=== PATIENT | female | born 1995 | race Caucasian/White ===

== ENCOUNTER 2019-01-14 00:06 | Inpatient (IN) | payer MEDICAID ==
[2019-01-14] MEDS ORDERED: Sodium Chloride 0.9% 10 ML Syringe FLUSH PRN (00:19)
[2019-01-14] MEDS ORDERED: Nalbuphine 10 MG/1 ML Vial IVPUSH PRN (00:19)
[2019-01-14] MEDS ORDERED: Lidocaine 1% 50 ML MDV INJECT PRN (00:19)
[2019-01-14] MEDS ORDERED: Carboprost Tromethamine 250 MCG/1 ML Amp IM PRN (00:19)
[2019-01-14] MEDS ORDERED: Misoprostol 200 MCG Tab PO PRN (00:19)
[2019-01-14] MEDS ORDERED: Misoprostol 25 MCG (1/4 of 100 MCG) Tab VAG PRN ×2 (00:19)
[2019-01-14] MEDS ORDERED: Ondansetron 4 MG/2 ML SDV IV PRN (00:19)
[2019-01-14] MEDS ORDERED: Methylergonovine 0.2 MG/1 ML Amp IM PRN (00:19)
[2019-01-14] MEDS ORDERED: Sodium Chloride 0.9% 2.5 ML Syringe FLUSH PRN (00:19)
[2019-01-14] MEDS ORDERED: Tranexamic Acid 1,000 MG in Sodium Chloride 0.9% 100 ML IV PRN (00:19)
[2019-01-14] MEDS ORDERED: Terbutaline 1 MG/ML SDV SUBCUT PRN (00:19)
[2019-01-14] MEDS ORDERED: Water For Irrigation,Sterile 1,000 ML Container IRR PRN (00:19)
[2019-01-14] MEDS ORDERED: Sodium Chloride 0.9% 10 ML SDV IV PRN (00:19)
[2019-01-14] MEDS ORDERED: Misoprostol 25 MCG (1/4 of 100 MCG) Tab PO ONE (00:25)
[2019-01-14] MEDS ORDERED: Oxytocin/0.9 % Sodium Chloride 30 UNIT/500 ML BAG IV SCH ×2 (00:30)
--- NOTE | 2019-01-14 02:03 | PCM.PREANE ---
Preanesthetic Assessment - Anesthesia/Transfusion/Family Hx Anesthesia History: Prior Anesthesia Without Reaction - Review of Systems General: No Symptoms Pulmonary: No Symptoms Cardiovascular: No Symptoms Gastrointestinal: No Symptoms Neurological: No Symptoms Other: Reports: None - Physical Assessment NPO Status Date: 01/14/19 Height: 1.65 m Weight: 87.09 kg ASA Class: 2 Mental Status: Alert & Oriented x3 Dentition: Reports: Normal Dentition ROM/Head Extension: Full Lungs: Clear to Auscultation Cardiovascular: Regular Rate - Lab Values: Laboratory Last Values WBC 15.83 K/uL (4.0-11.0) H 01/14/19 00:38 RBC 4.46 M/uL (4.30-5.90) 01/14/19 00:38 Hgb 12.1 g/dL (12.0-16.0) 03 00:38 Hct 34.9 % (36.0-46.0) L 03 00:38 MCV 78.3 fL (80.0-98.0) L 03 00:38 MCH 27.1 pg (27.0-32.0) 03 00:38 MCHC 34.7 g/dL (31.0-37.0) 01/14/19 00:38 RDW Std Deviation 35.4 fl (28.0-62.0) 01/14/19 00:38 RDW Coeff of Dilan 13 % (11.0-15.0) 03 00:38 Plt Count 311 K/uL (150-400) 01/14/19 00:38 MPV 10.50 fL (7.40-12.00) 03 00:38 Blood Type A POSITIVE 01/14/19 00:38 Antibody Screen NEGATIVE 03 00:38 - Allergies Allergies/Adverse Reactions: Allergies Allergy/AdvReac Type Severity Reaction Status Date / Time amoxicillin Allergy Anaphylactic Verified 01/14/19 01:03 Shock Penicillins Allergy Anaphylactic Verified 01/14/19 01:02 Shock - Acknowledgements Anesthesia Type Planned: Epidural Pt an Appropriate Candidate for the Planned Anesthesia: Yes Alternatives and Risks of Anesthesia Discussed w Pt/Guardian: Yes Pt/Guardian Understands and Agrees with Anesthesia Plan: Yes PreAnesthesia Questionnaire - CURRENT (IN HOUSE) MEDS Current Meds: Current Medications Butorphanol Tartrate (Stadol) 1 mg IVPUSH Q1H PRN PRN Reason: Pain Carboprost Tromethamine (Hemabate Ds) 250 mcg IM ASDIRECTED PRN PRN Reason: Post Hemorrhage Lactated Ringer's (Ringers, Lactated) 1,000 mls @ 150 mls/hr IV ASDIRECTED CHRISTINE Oxytocin/Sodium Chloride (Oxytocin 30 Unit/500 Ml-Ns) 30 unit in 500 mls @ 999 mls/hr IV TITRATE CHRISTINE Oxytocin/Sodium Chloride (Oxytocin 30 Unit/500 Ml-Ns) 30 unit in 500 mls @ 2 mls/hr IV TITRATE CHRISTINE; Protocol Tranexamic Acid 1,000 mg/ (Sodium Chloride) 110 mls @ 660 mls/hr IV ONETIME PRN PRN Reason: Bleeding Lidocaine HCl (Xylocaine 1%) 50 ml INJECT ONETIME PRN PRN Reason: Laceration repair Methylergonovine Maleate (Methergine) 0.2 mg IM ASDIRECTED PRN PRN Reason: Post Hemorrhage Misoprostol (Cytotec) 200 mcg PO ONETIME PRN PRN Reason: Post Hemorrhage Misoprostol (Cytotec) 25 mcg VAG ONETIME PRN PRN Reason: Cervical Ripening Last Admin: 01/14/19 01:24 Dose: 25 mcg Misoprostol (Cytotec) 25 mcg VAG Q4H PRN PRN Reason: Cervical Ripening Nalbuphine HCl (Nubain) 10 mg IVPUSH Q1H PRN PRN Reason: Pain (severe 7-10) Ondansetron HCl (Zofran) 4 mg IV Q4H PRN PRN Reason: Nausea/Vomiting Sodium Chloride (Saline Flush) 10 ml FLUSH ASDIRECTED PRN PRN Reason: Keep Vein Open Sodium Chloride (Saline Flush) 2.5 ml FLUSH ASDIRECTED PRN PRN Reason: Keep Vein Open Sodium Chloride (Normal Saline) 10 ml IV ASDIRECTED PRN PRN Reason: IV Use Sterile Water (Sterile Water For Irrigation) 1,000 ml IRR ASDIRECTED PRN PRN Reason: delivery Terbutaline Sulfate (Brethine) 0.25 mg SUBCUT ASDIRECTED PRN PRN Reason: Tacysystole Discontinued Medications Misoprostol (Cytotec) 25 mcg PO ONETIME ONE Stop: 03/10/19 00:26 Last Admin: 01/14/19 01:24 Dose: 25 mcg
[2019-01-14] MEDS: Lactated Ringers 1,000 ML IV SCH ×2 (07:25→10:56)
[2019-01-14] MEDS: Butorphanol 1 MG/ML SDV IVPUSH PRN ×2 (07:27→12:20)
--- NOTE | 2019-01-14 10:40 | PCM.LDHP ---
L&D History of Present Illness - General Date of Service: 01/14/19 Admit Problem/Dx: Patient Status Order with Admit Dx/Problem 01/14/19 00:20 Patient Status [ADT] Routine Admission Diagnosis/Problem Admission Diagnosis/Problem Source of Information: Patient History Limitations: Reports: No Limitations - History of Present Illness Pain Score: 7 Improves with: Reports: None Worsens with: Reports: None Associated Symptoms: Reports: N - Related Data Allergies/Adverse Reactions: Allergies Allergy/AdvReac Type Severity Reaction Status Date / Time amoxicillin Allergy Anaphylactic Verified 01/14/19 01:03 Shock Penicillins Allergy Anaphylactic Verified 01/14/19 01:02 Shock Past Medical History HEENT History: Reports: None Cardiovascular History: Reports: None Respiratory History: Reports: None Gastrointestinal History: Reports: None [employer] History: Reports: Musculoskeletal History: Reports: None Neurological History: Reports: None Psychiatric History: Reports: None Endocrine/Metabolic History: Reports: None Hematologic History: Reports: None Immunologic History: Reports: None Oncologic (Cancer) History: Reports: None Dermatologic History: Reports: None - Infectious Disease History Infectious Disease History: Reports: Chicken Pox - Past Surgical History Head Surgeries/Procedures: Reports: None Cardiovascular Surgical History: Reports: None Female Surgical History: Reports: None Social & Family History - Family History Family Medical History: Noncontributory - Tobacco Use Smoking Status *Q: Never Smoker Second Hand Smoke Exposure: No - Caffeine Use Caffeine Use: Reports: None - Recreational Drug Use Recreational Drug Use: No H&P Review of Systems - Review of Systems: Review Of Systems: See Below General: Reports: No Symptoms HEENT: Reports: No Symptoms Pulmonary: Reports: No Symptoms Cardiovascular: Reports: No Symptoms Gastrointestinal: Reports: No Symptoms Genitourinary: Reports: No Symptoms Musculoskeletal: Reports: No Symptoms Skin: Reports: No Symptoms Psychiatric: Reports: No Symptoms Neurological: Reports: No Symptoms Hematologic/Lymphatic: Reports: No Symptoms Immunologic: Reports: No Symptoms L&D Exam - Exam Exam: See Below - Vital Signs Weight: 87.09 kg - OB Specific Fundal Height In cm: 38 Contraction Intensity: Mild to Moderate Movement: Active Heart Tones: Present Presentation: Vertex - Bradley Score Bradley Score Cervix Position: Midposition Bradley Score Consistency: Medium Bradley Score Effacement: 51-70% Bradley Score Dilation: 1-2 cm Bradley Score Infant's Station: -3 Bradley Score Total: 5 - Exam General: Alert, Oriented HEENT: PERRLA, Conjunctiva Clear, EACs Clear, EOMI, Hearing Intact, Mucosa Moist & [place], Nares Patent, Normal Nasal Septum, Posterior Pharynx Clear, TMs Clear Neck: Supple, Trachea Midline Lungs: Clear to Auscultation, Normal Respiratory Effort Cardiovascular: Regular Rate, Regular Rhythm GI/Abdominal Exam: Normal Bowel Sounds, Soft, Non-Tender, No Organomegaly, No Distention, No Abnormal Bruit, No Mass, Pelvis Stable Rectal Exam: Normal Exam, Normal Rectal Tone Genitourinary: Normal external exam, Normal bimanual exam, Normal speculum exam Back Exam: Normal Inspection, Full Range of Motion Extremities: Normal Inspection, Normal Range of Motion, Non-Tender, No Pedal Edema, Normal Capillary Refill Skin: Warm, Dry, Intact Neurological: Cranial Nerves Intact, Reflexes Equal Bilateral Psychiatric: Alert, Normal Affect, Normal Mood - Patient Data Lab Results Last 24 hrs: Laboratory Results - last 24 hr 01/14/19 01/14/19 Range/Units 00:38 00:38 WBC 15.83 H (4.0-11.0) K/uL RBC 4.46 (4.30-5.90) M/uL Hgb 12.1 (12.0-16.0) g/dL Hct 34.9 L (36.0-46.0) % MCV 78.3 L (80.0-98.0) fL MCH 27.1 (27.0-32.0) pg MCHC 34.7 (31.0-37.0) g/dL RDW Std Deviation 35.4 (28.0-62.0) fl RDW Coeff of Dilan 13 (11.0-15.0) % Plt Count 311 (150-400) K/uL MPV 10.50 (7.40-12.00) fL Blood Type A POSITIVE Antibody Screen NEGATIVE Result Diagrams: 01/14/19 00:38 Problem List Initiated/Reviewed/Updated: Yes Orders Last 24hrs: Active Orders 24 hr Category Date Time Status Patient Status [ADT] Routine ADT 01/14/19 00:20 Active Bedrest Bathroom Privileges [RC] ASDIRECTED Care 01/14/19 00:20 Active Communication Order [RC] ASDIRECTED Care 01/14/19 00:20 Active Communication Order [RC] ASDIRECTED Care 01/14/19 00:20 Active Communication Order [RC] ASDIRECTED Care 01/14/19 00:20 Active May Shower [RC] ASDIRECTED Care 01/14/19 00:20 Active Notify Provider [RC] PRN Care 01/14/19 00:20 Active Notify Provider [RC] PRN Care 01/14/19 00:20 Active Notify Provider [RC] PRN Care 01/14/19 00:20 Active Notify Provider [RC] STAT Care 01/14/19 00:20 Active Oxygen Therapy [RC] ASDIRECTED Care 01/14/19 00:20 Active Up ad Winnie [RC] ASDIRECTED Care 01/14/19 00:20 Active Vital Signs [RC] PER UNIT ROUTINE Care 01/14/19 00:20 Active Vital Signs [RC] PER UNIT ROUTINE Care 01/14/19 00:20 Active Clear Liquid Diet [DIET] Diet 01/14/19 Breakfast Active Butorphanol [Stadol] Med 01/14/19 00:19 Active 1 mg IVPUSH Q1H PRN Carboprost Tromethamine [Hemabate DS] Med 01/14/19 00:19 Active 250 mcg IM ASDIRECTED PRN Lactated Ringers [Ringers, Lactated] 1,000 ml Med 01/14/19 00:30 Active IV ASDIRECTED Lidocaine 1% [Xylocaine 1%] Med 01/14/19 00:19 Active 50 ml INJECT ONETIME PRN Methylergonovine [Methergine] Med 01/14/19 00:19 Active 0.2 mg IM ASDIRECTED PRN Nalbuphine [Nubain] Med 01/14/19 00:19 Active 10 mg IVPUSH Q1H PRN Ondansetron [Zofran] Med 01/14/19 00:19 Active 4 mg IV Q4H PRN Oxytocin/0.9 % Sodium Chloride [Oxytocin 30 Unit/500 ML Med 01/14/19 00:30 Active -NS] 30 unit in 500 ml IV TITRATE Oxytocin/0.9 % Sodium Chloride [Oxytocin 30 Unit/500 ML Med 01/14/19 00:30 Active -NS] 30 unit in 500 ml IV TITRATE Sodium Chloride 0.9% [Normal Saline] Med 01/14/19 00:19 Active 10 ml IV ASDIRECTED PRN Sodium Chloride 0.9% [Saline Flush] Med 01/14/19 00:19 Active 10 ml FLUSH ASDIRECTED PRN Sodium Chloride 0.9% [Saline Flush] Med 01/14/19 00:19 Active 2.5 ml FLUSH ASDIRECTED PRN Terbutaline [Brethine] Med 01/14/19 00:19 Active 0.25 mg SUBCUT ASDIRECTED PRN Tranexamic Acid [Cyklokapron] 1,000 mg Med 01/14/19 00:19 Active Sodium Chloride 0.9% [Normal Saline] 100 ml IV ONETIME Water For Irrigation,Sterile [Sterile Water for Med 01/14/19 00:19 Active Irrigation] 1,000 ml IRR ASDIRECTED PRN miSOPROStol [Cytotec] Med 01/14/19 00:19 Active 200 mcg PO ONETIME PRN miSOPROStol [Cytotec] Med 01/14/19 00:19 Active 25 mcg VAG ONETIME PRN miSOPROStol [Cytotec] Med 01/14/19 00:19 Active 25 mcg VAG Q4H PRN Scalp Electrode [WOMSER] Per Unit Routine Oth 01/14/19 00:20 Ordered Medication Administration Instruction [OM.PC] Q3H Oth 01/14/19 00:30 Ordered Peripheral IV Insertion Adult [OM.PC] Routine Oth 01/14/19 00:20 Ordered Resuscitation Status Routine Resus Stat 01/14/19 00:19 Ordered Medication Orders Butorphanol Tartrate (Stadol) 1 mg IVPUSH Q1H PRN PRN Reason: Pain Last Admin: 01/14/19 07:27 Dose: 1 mg Carboprost Tromethamine (Hemabate Ds) 250 mcg IM ASDIRECTED PRN PRN Reason: Post Hemorrhage Lactated Ringer's (Ringers, Lactated) 1,000 mls @ 150 mls/hr IV ASDIRECTED CHRISTINE Last Admin: 01/14/19 07:25 Dose: 150 mls/hr Oxytocin/Sodium Chloride (Oxytocin 30 Unit/500 Ml-Ns) 30 unit in 500 mls @ 999 mls/hr IV TITRATE CHRISTINE Oxytocin/Sodium Chloride (Oxytocin 30 Unit/500 Ml-Ns) 30 unit in 500 mls @ 2 mls/hr IV TITRATE CHRISTINE; Protocol Tranexamic Acid 1,000 mg/ (Sodium Chloride) 110 mls @ 660 mls/hr IV ONETIME PRN PRN Reason: Bleeding Lidocaine HCl (Xylocaine 1%) 50 ml INJECT ONETIME PRN PRN Reason: Laceration repair Methylergonovine Maleate (Methergine) 0.2 mg IM ASDIRECTED PRN PRN Reason: Post Hemorrhage Misoprostol (Cytotec) 200 mcg PO ONETIME PRN PRN Reason: Post Hemorrhage Misoprostol (Cytotec) 25 mcg VAG ONETIME PRN PRN Reason: Cervical Ripening Last Admin: 01/14/19 01:24 Dose: 25 mcg Misoprostol (Cytotec) 25 mcg VAG Q4H PRN PRN Reason: Cervical Ripening Nalbuphine HCl (Nubain) 10 mg IVPUSH Q1H PRN PRN Reason: Pain (severe 7-10) Ondansetron HCl (Zofran) 4 mg IV Q4H PRN PRN Reason: Nausea/Vomiting Sodium Chloride (Saline Flush) 10 ml FLUSH ASDIRECTED PRN PRN Reason: Keep Vein Open Sodium Chloride (Saline Flush) 2.5 ml FLUSH ASDIRECTED PRN PRN Reason: Keep Vein Open Sodium Chloride (Normal Saline) 10 ml IV ASDIRECTED PRN PRN Reason: IV Use Sterile Water (Sterile Water For Irrigation) 1,000 ml IRR ASDIRECTED PRN PRN Reason: delivery Terbutaline Sulfate (Brethine) 0.25 mg SUBCUT ASDIRECTED PRN PRN Reason: Tacysystole Assessment/Plan Comment:: Admitted for elective induction. P1001. FAR normal CX> 2/60/v/-3 AROM done by me clear fluid. She can Epidural when it is appropriate. You can start pitocin as per protocol.
[2019-01-14] MEDS ORDERED: Lidocaine HCl/EPINEPHrine 5 ML IJ ONE (15:33)
[2019-01-14] MEDS ORDERED: Bupivacaine 0.25% 10 ML SDV ONE (15:33)
[2019-01-14] MEDS ORDERED: fentaNYL 100 MCG/2 ML SDV ONE (15:33)
[2019-01-14] MEDS ORDERED: Docusate Sodium 100 MG Cap PO PRN (19:55)
[2019-01-14] MEDS ORDERED: Benzocaine/Menthol 20%-0.5% Spray 78 GM Cannister TOP PRN (19:55)
[2019-01-14] MEDS ORDERED: Ibuprofen 400 MG Tab PO PRN (19:55)
[2019-01-14] MEDS ORDERED: Lanolin 100% Cream 7 GM Tube TOP PRN (19:55)
[2019-01-14] MEDS ORDERED: Acetaminophen 500 MG Tab PO PRN (19:55)
[2019-01-14] MEDS ORDERED: Bisacodyl 10 MG Supp RECTAL PRN (19:55)
[2019-01-14] MEDS ORDERED: Witch Hazel Medicated Pads 40/Jar TOP PRN (19:55)
--- NOTE | 2019-01-14 20:27 | OR ---
SURGEON: Adonay Zamarripa MD DATE OF PROCEDURE: 01/14/2019 This patient is 23-year-old female, she is para 1-0-0-1, she is followed in our clinic primarily by our nurse resident services coordinator, Jessica Valdez. She have uncomplicated care. Her GBS status was negative. She is admitted for elective induction. She was induced mainly for social induction. She was induced with Cytotec. She required one dose of Cytotec. She progressed to 3 cm, 60% vertex. I was able to do artificial rupture of the membrane around 10:30 this morning with clear fluid. The patient is started on Pitocin. She started having regular contraction every 2 to 3 minutes, and then she had epidural anesthesia for labor analgesia. The patient progressed nicely, and she was able to accomplish normal spontaneous vaginal delivery for a male fetus, cried immediately, score reported to be 8 and 9, the weight is not available. The placenta was delivered spontaneous, complete, and intact. Estimated blood loss was 300 to 350 mL. There was no perineal, vaginal, or labial laceration. heart rate was category 1 through the entire process of labor. There was one nuchal cord noticed, reduced easily without any problem. There was no complication in this Labor and Delivery. VIVIANA / JOSE /[id number]
[2019-01-14] MEDS: Ibuprofen 800 MG Tab PO PRN (21:19)
[2019-01-14] MEDS: Acetaminophen 500 MG Tab PO PRN (21:20)
[2019-01-14] MEDS: oxyCODONE 5 MG Tab PO PRN (23:34)
[2019-01-15] MEDS: oxyCODONE 5 MG Tab PO PRN ×3 (06:55→21:33)
[2019-01-15] MEDS: Ibuprofen 800 MG Tab PO PRN ×2 (06:55→18:00)
--- NOTE | 2019-01-15 08:35 | PCM.DCSUM1 ---
Discharge Summary - Hospital Course Free Text/Narrative:: discharge home with , follow up 6 weeks for Diagnosis: Stroke: No - Discharge Data Discharge Date: 01/15/19 Discharge Disposition: Home, Self-Care 01 Condition: Good - Discharge Diagnosis/Problem(s) (1) Supervision of normal IUP (intrauterine ) in multigravida SNOMED Code(s): 368046082, [id number], 494785282 ICD Code: Z34.80 - ENCOUNTER FOR SUPRVSN OF NORMAL , UNSP TRIMESTER Status: Acute Priority: High Current Visit: Yes Qualifiers: Trimester: third trimester Qualified Code(s): Z34.83 - Encounter for supervision of other normal , third trimester (2) (normal spontaneous vaginal delivery) SNOMED Code(s): 40132709 ICD Code: O80 - ENCOUNTER FOR FULL-TERM UNCOMPLICATED DELIVERY Status: Acute Priority: High Current Visit: Yes - Patient Instructions Diet: Usual Diet as Tolerated Activity: As Tolerated, No Strenuous Activities, Rest and Relax Today Driving: May Drive Today Showering/Bathing: May Shower Notify Provider of: Fever, Increased Pain, Swelling and Redness, Nausea and/or Vomiting Other/Special Instructions: discharge home with , follow up 6 weeks for - Discharge Plan *PRESCRIPTION DRUG MONITORING PROGRAM REVIEWED*: Not Applicable *COPY OF PRESCRIPTION DRUG MONITORING REPORT IN PATIENT ILSA: Not Applicable Prescriptions/Med Rec: Ibuprofen [Motrin] 800 mg PO Q8H PRN #90 tablet PRN Reason: Pain Home Medications: Home Meds Ibuprofen [Motrin] 800 mg PO Q8H PRN #90 tablet 01/15/19 [Rx] Oxygen Therapy Mode: Room Air - Discharge Summary/Plan Comment DC Time >30 min.: Yes - General Info Date of Service: 01/15/19 Admission Dx/Problem (Free Text: Patient Status Order with Admit Dx/Problem 01/14/19 00:20 Patient Status [ADT] Routine Admission Diagnosis/Problem Admission Diagnosis/Problem - Review of Systems General: Reports: No Symptoms HEENT: Reports: No Symptoms Pulmonary: Reports: No Symptoms Cardiovascular: Reports: No Symptoms Gastrointestinal: Reports: No Symptoms Genitourinary: Reports: No Symptoms Musculoskeletal: Reports: No Symptoms Skin: Reports: No Symptoms Neurological: Reports: No Symptoms Psychiatric: Reports: No Symptoms - Patient Data Vitals - Most Recent: Last Vital Signs Temp 36.6 C 01/15/19 07:28 Pulse 98 01/15/19 07:28 Resp 16 01/15/19 07:28 BP 118/79 01/15/19 07:28 Pulse Ox 98 01/15/19 07:28 Weight - Most Recent: 87.09 kg Lab Results - Last 24 hrs: Laboratory Results - last 24 hr 01/15/19 Range/Units 05:35 Hgb 10.4 L (12.0-16.0) g/dL Hct 30.0 L (36.0-46.0) % Med Orders - Current: Current Medications Acetaminophen (Tylenol Extra Strength) 500 mg PO Q4H PRN PRN Reason: Pain Acetaminophen (Tylenol Extra Strength) 1,000 mg PO Q4H PRN PRN Reason: Pain Last Admin: 01/14/19 21:20 Dose: 1,000 mg Benzocaine/Menthol (Dermoplast Pain Relief 20%-0.5% [place]) 0 gm TOP ASDIRECTED PRN PRN Reason: Perineal Comfort Measure Bisacodyl (Dulcolax) 10 mg RECTAL ONETIME PRN PRN Reason: Constipation Butorphanol Tartrate (Stadol) 1 mg IVPUSH Q1H PRN PRN Reason: Pain Last Admin: 01/14/19 12:20 Dose: 1 mg Carboprost Tromethamine (Hemabate Ds) 250 mcg IM ASDIRECTED PRN PRN Reason: Post Hemorrhage Docusate Sodium (Colace) 100 mg PO BID PRN PRN Reason: Constipation Emollient Ointment (Lansinoh Hpa) 0 gm TOP ASDIRECTED PRN PRN Reason: Sore Nipples Lactated Ringer's (Ringers, Lactated) 1,000 mls @ 150 mls/hr IV ASDIRECTED CHRISTINE Last Admin: 01/14/19 10:56 Dose: 150 mls/hr Oxytocin/Sodium Chloride (Oxytocin 30 Unit/500 Ml-Ns) 30 unit in 500 mls @ 999 mls/hr IV TITRATE CHRISTINE Oxytocin/Sodium Chloride (Oxytocin 30 Unit/500 Ml-Ns) 30 unit in 500 mls @ 2 mls/hr IV TITRATE CHRISTINE; Protocol Last Titration: 01/15/19 02:01 Dose: Infused Tranexamic Acid 1,000 mg/ (Sodium Chloride) 110 mls @ 660 mls/hr IV ONETIME PRN PRN Reason: Bleeding Ibuprofen (Motrin) 400 mg PO Q4H PRN PRN Reason: Pain Ibuprofen (Motrin) 800 mg PO Q6H PRN PRN Reason: Pain Last Admin: 01/15/19 06:55 Dose: 800 mg Lidocaine HCl (Xylocaine 1%) 50 ml INJECT ONETIME PRN PRN Reason: Laceration repair Methylergonovine Maleate (Methergine) 0.2 mg IM ASDIRECTED PRN PRN Reason: Post Hemorrhage Misoprostol (Cytotec) 200 mcg PO ONETIME PRN PRN Reason: Post Hemorrhage Misoprostol (Cytotec) 25 mcg VAG ONETIME PRN PRN Reason: Cervical Ripening Last Admin: 01/14/19 01:24 Dose: 25 mcg Misoprostol (Cytotec) 25 mcg VAG Q4H PRN PRN Reason: Cervical Ripening Nalbuphine HCl (Nubain) 10 mg IVPUSH Q1H PRN PRN Reason: Pain (severe 7-10) Ondansetron HCl (Zofran) 4 mg IV Q4H PRN PRN Reason: Nausea/Vomiting Last Admin: 01/14/19 18:52 Dose: 4 mg Oxycodone HCl (Oxycodone) 5 mg PO Q2H PRN PRN Reason: Pain Last Admin: 01/15/19 06:55 Dose: 5 mg Sodium Chloride (Saline Flush) 10 ml FLUSH ASDIRECTED PRN PRN Reason: Keep Vein Open Sodium Chloride (Saline Flush) 2.5 ml FLUSH ASDIRECTED PRN PRN Reason: Keep Vein Open Sodium Chloride (Normal Saline) 10 ml IV ASDIRECTED PRN PRN Reason: IV Use Sterile Water (Sterile Water For Irrigation) 1,000 ml IRR ASDIRECTED PRN PRN Reason: delivery Terbutaline Sulfate (Brethine) 0.25 mg SUBCUT ASDIRECTED PRN PRN Reason: Tacysystole Witch Lily (Tucks) 1 pad TOP ASDIRECTED PRN PRN Reason: comfort care Discontinued Medications Bupivacaine HCl (Sensorcaine-Mpf 0.25%) Confirm Administered Dose 10 ml .ROUTE .STK-MED ONE Stop: 01/14/19 15:34 Last Admin: 01/15/19 07:26 Dose: Not Given Fentanyl (Sublimaze) Confirm Administered Dose 100 mcg .ROUTE .STK-MED ONE Stop: 01/14/19 15:34 Last Admin: 01/15/19 07:26 Dose: Not Given Fentanyl/Bupivacaine HCl (Qmvnsqib-[id number] 2 Mcg/Ml-0.125%) Confirm Administered Dose 100 mls @ as directed .ROUTE .STK-MED ONE Stop: 01/14/19 15:34 Last Admin: 01/15/19 07:26 Dose: Not Given Lidocaine/Epinephrine (Lidocaine 1.5%-Epi 1:200,000) Confirm Administered Dose 5 ml IJ .STK-MED ONE Stop: 01/14/19 15:34 Last Admin: 01/15/19 07:26 Dose: Not Given Misoprostol (Cytotec) 25 mcg PO ONETIME ONE Stop: 01/14/19 00:26 Last Admin: 01/14/19 01:24 Dose: 25 mcg - Exam General: Reports: Alert, Oriented, Cooperative, No Acute Distress Lungs: Reports: Clear to Auscultation, Normal Respiratory Effort Cardiovascular: Reports: Regular Rate, Regular Rhythm, No Murmurs GI/Abdominal Exam: Soft, Non-Tender (Female) Exam: Deferred Rectal (Female) Exam: Deferred Back Exam: Reports: Normal Inspection, Full Range of Motion Extremities: Normal Inspection, Normal Range of Motion Skin: Reports: Warm, Dry, Intact Neurological: Reports: No New Focal Deficit, Normal Gait, Normal Speech, Normal Tone, Strength Equal Bilateral Psy/Mental Status: Reports: Alert, Normal Affect, Normal Mood
[2019-01-15] MEDS: Acetaminophen 500 MG Tab PO PRN ×2 (13:12→20:49)
--- NOTE | 2019-01-15 13:26 | PCM48HPAN ---
Post Anesthesia Note - EVALUATION WITHIN 48HRS OF ANESTHETIC Vital Signs in Normal Range: Yes Patient Participated in Evaluation: Yes Respiratory Function Stable: Yes Airway Patent: Yes Cardiovascular Function Stable: Yes Hydration Status Stable: Yes Pain Control Satisfactory: Yes Nausea and Vomiting Control Satisfactory: Yes Mental Status Recovered: Yes Resp Rate: 16
== END 2019-01-15 22:00 | disposition home or self-care (01) | DRG 807 ==
LOC: MW.OBCHECK 00:06 → MW.OB 00:07 → MW.OBCHECK 00:45 → OBSVTOIN 19:47 → MW.OB 23:41
PROVIDERS: ADMIT Obstetrics & Gynecology; ATTEND Obstetrics & Gynecology
PROC: 3E0P7VZ Introduction of Hormone into Female Reproductive, Via Natural or Artificial Opening (ICD-10-PCS; principal; 2019-01-14)
PROC: 10E0XZZ Delivery of Products of Conception, External Approach (ICD-10-PCS; principal; 2019-01-14)
PROC: 10907ZC Drainage of Amniotic Fluid, Therapeutic from Products of Conception, Via Natural or Artificial Opening (ICD-10-PCS; principal; 2019-01-14)
PROC: 00HU33Z Insertion of Infusion Device into Spinal Canal, Percutaneous Approach (ICD-10-PCS; 2019-01-14)
PROC: 3E0R3BZ Introduction of Anesthetic Agent into Spinal Canal, Percutaneous Approach (ICD-10-PCS; 2019-01-14)
DX: O69.81X0 Labor and delivery complicated by cord around neck, without compression, not applicable or unspecified (principal); Z37.0 Single live birth; Z3A.39 39 weeks gestation of pregnancy; Z88.1 Allergy status to other antibiotic agents; Z88.0 Allergy status to penicillin
CPT/HCPCS: 36415; 51702; 59025; 59409; 85014; 85018; 85027; 86850; 86900; 86901; A9270-GY; J0595; J2405; J2590; J7120

== ENCOUNTER 2019-04-10 05:29 | Emergency (ER) | payer SELFPAY ==
[2019-04-10] MEDS ORDERED: Sodium Chloride 0.9% 2.5 ML Syringe FLUSH PRN (05:54)
[2019-04-10] MEDS ORDERED: Sodium Chloride 0.9% 1,000 ML IV ONE (05:54)
[2019-04-10] MEDS ORDERED: Sodium Chloride 0.9% 10 ML Syringe FLUSH PRN (05:54)
[2019-04-10] MEDS ORDERED: Ondansetron 4 MG/2 ML SDV IVPUSH ONE (05:54)
[2019-04-10] MEDS ORDERED: Ketorolac 30 MG/ML SDV IVPUSH ONE (05:54)
--- NOTE | 2019-04-10 06:00 | EDM.PDOC ---
ED HPI GENERAL MEDICAL PROBLEM - General Chief Complaint: Flank Pain Stated Complaint: MID BACK PAIN Time Seen by Provider: 04/10/19 05:35 - History of Present Illness INITIAL COMMENTS - FREE TEXT/NARRATIVE: HISTORY AND PHYSICAL: History of present illness: The patient is a 23-year-old female who presents with sudden onset of right flank pain radiating to the right lower abdomen that started approximately 1 hour ago. The pain is associated with nausea and vomiting but no dysuria frequency or urgency and no hematuria. The patient said she had a completely normal day yesterday and had no systemic complaints and was sleeping fine when about an hour ago she woke up feeling some discomfort which has accelerated. She 's had no vaginal bleeding and no fevers chills or upper respiratory symptoms she has no specific upper abdominal pain and no GI or gynecologic history. Patient's last sexual intercourse was 2 days ago and she has no history of ovarian cysts or gynecologic issues and her last regular period was 1 weeks ago. The patient says that she is not breast-feeding her child who is 3 months old. The patient does not take any medication for pain prior to coming here and did have an episode of vomiting at home as well as an episode of vomiting here. She has no history of food intolerance no liver or gallbladder issues or drinking history with respect to that. She admits she does not hydrate very well. Review of systems: As per history of present illness and below otherwise all systems reviewed and negative. Past medical history: As per history of present illness and as reviewed below otherwise noncontributory. Surgical history: As per history of present illness and as reviewed below otherwise noncontributory. Social history: No reported history of drug or alcohol abuse. Family history: As per history of present illness and as reviewed below otherwise noncontributory. Physical exam: General: Well-developed well-nourished female who looks uncomfortable in the room and vital signs are noted by me. HEENT: Atraumatic, normocephalic, , negative for conjunctival pallor or scleral icterus, mucous membranes moist, throat clear, neck supple, nontender, trachea midline. Lungs: Clear to auscultation, breath sounds equal bilaterally, chest nontender. Heart: S1S2, regular rate and rhythm no overt murmurs Abdomen: Soft, nondistended, there is some mild tenderness in the right upper quadrant without rebound or guarding and no right lower quadrant tenderness. Negative for masses or hepatosplenomegaly. Negative for costovertebral tenderness. When I do palpate her anterior abdomen she keeps telling me that the pain is deeper and I cannot reproduce it completely. Pelvis: Stable nontender. Genitourinary: Deferred. Rectal: Deferred. Extremities: Atraumatic, negative for cords or calf pain. Neurovascular unremarkable. Neuro: Awake, alert, oriented. Cranial nerves II through XII unremarkable. Cerebellum unremarkable. Motor and sensory unremarkable throughout. Exam nonfocal. Diagnostics: UA with culture UCG CBC CMP CT scan of the abdomen and pelvis Therapeutics: IV fluids Zofran Toradol Dilaudid Patient is still having pain so we will dose with Dilaudid. Labs have been reviewed and we are currently awaiting the CT scan results. Patient is aware of CT scan findings of several kidney stones within the kidney but no obstructive kidney stones and a renal cyst. The appendix is normal the gallbladder may have some sludge but no stones or obstruction and the pelvic organs are without abnormalities. We will give the patient pain medication and follow-up with urology as well as primary care. Patient was advised to eat a low -fat diet and she did eat posole for dinner and does eat a lot of [place] food. She is aware that there is sludge in the gallbladder but with normal LFTs normal white cell count this would be managed conservatively. I will give her Zofran and some [place] for home. Impression: Right flank pain, nephrolithiasis, rule out biliary colic Definitive disposition and diagnosis as appropriate pending reevaluation and review of above. right flank Pain Score (Numeric/FACES): 10 - Related Data Allergies Allergy/AdvReac Type Severity Reaction Status Date / Time amoxicillin Allergy Anaphylactic Verified 04/10/19 05:37 Shock Penicillins Allergy Anaphylactic Verified 04/10/19 05:37 Shock Past Medical History HEENT History: Reports: None Cardiovascular History: Reports: None Respiratory History: Reports: None Gastrointestinal History: Reports: None Genitourinary History: Reports: None [employer] History: Reports: Musculoskeletal History: Reports: None Neurological History: Reports: None Psychiatric History: Reports: None Endocrine/Metabolic History: Reports: None Hematologic History: Reports: None Immunologic History: Reports: None Oncologic (Cancer) History: Reports: None Dermatologic History: Reports: None - Infectious Disease History Infectious Disease History: Reports: None - Past Surgical History Head Surgeries/Procedures: Reports: None Cardiovascular Surgical History: Reports: None Female Surgical History: Reports: None Social & Family History - Family History Family Medical History: Noncontributory - Tobacco Use Smoking Status *Q: Never Smoker - Caffeine Use Caffeine Use: Reports: Soda - Recreational Drug Use Recreational Drug Use: No ED ROS GENERAL - Review of Systems Review Of Systems: ROS reveals no pertinent complaints other than HPI. ED EXAM, GENERAL - Physical Exam Exam: See Below (See dictation) Course - Vital Signs Last Recorded V/S: Last Vital Signs Temp 36.4 C 04/10/19 05:38 Pulse 88 04/10/19 05:38 Resp 18 04/10/19 05:38 BP 137/99 H 04/10/19 05:38 Pulse Ox 98 04/10/19 05:38 - Orders/Labs/Meds Orders: Active Orders 24 hr Category Date Time Status CULTURE URINE [RM] Stat Lab 04/10/19 05:40 Received Sodium Chloride 0.9% [Normal Saline] 1,000 ml Med 04/10/19 05:54 Active IV STAT Sodium Chloride 0.9% [Saline Flush] Med 04/10/19 05:54 Active 10 ml FLUSH ASDIRECTED PRN Sodium Chloride 0.9% [Saline Flush] Med 04/10/19 05:54 Active 2.5 ml FLUSH ASDIRECTED PRN Saline Lock Insert [OM.PC] Stat Oth 04/10/19 05:53 Ordered Medication Orders Sodium Chloride (Normal Saline) 1,000 mls @ 999 mls/hr IV STAT ONE Stop: 04/10/19 06:54 Last Admin: 04/10/19 06:09 Dose: 999 mls/hr Sodium Chloride (Saline Flush) 10 ml FLUSH ASDIRECTED PRN PRN Reason: Keep Vein Open Sodium Chloride (Saline Flush) 2.5 ml FLUSH ASDIRECTED PRN PRN Reason: Keep Vein Open Labs: Laboratory Tests 04/10/19 04/10/19 04/10/19 Range/Units 05:40 05:40 06:02 WBC 7.09 (4.0-11.0) K/uL RBC 5.11 (4.30-5.90) M/uL Hgb 13.7 (12.0-16.0) g/dL Hct 39.1 (36.0-46.0) % MCV 76.5 L (80.0-98.0) fL MCH 26.8 L (27.0-32.0) pg MCHC 35.0 (31.0-37.0) g/dL RDW Std Deviation 38.4 (28.0-62.0) fl RDW Coeff of Dilan 14 (11.0-15.0) % Plt Count 293 (150-400) K/uL MPV 10.00 (7.40-12.00) fL Neut % (Auto) 54.5 (48.0-80.0) % Lymph % (Auto) 35.1 (16.0-40.0) % [place] % (Auto) 7.9 (0.0-15.0) % Eos % (Auto) 2.4 (0.0-7.0) % Baso % (Auto) 0.1 (0.0-1.5) % Neut # (Auto) 3.9 (1.4-5.7) K/uL Lymph # (Auto) 2.5 H (0.6-2.4) K/uL [place] # (Auto) 0.6 (0.0-0.8) K/uL Eos # (Auto) 0.2 (0.0-0.7) K/uL Baso # (Auto) 0.0 (0.0-0.1) K/uL Nucleated RBC % 0.0 /100WBC Nucleated RBCs # 0 K/uL Sodium (136-145) mmol/L Potassium (3.5-5.1) mmol/L Chloride (98-107) mmol/L Carbon Dioxide (21.0-32.0) mmol/L BUN (7.0-18.0) mg/dL Creatinine (0.6-1.0) mg/dL Est Cr Clr Drug Dosing mL/min Estimated GFR (MDRD) ml/min Glucose (74-106) mg/dL Calcium (8.5-10.1) mg/dL Total Bilirubin (0.2-1.0) mg/dL AST (15-37) IU/L ALT (14-63) IU/L Alkaline Phosphatase (46-116) U/L Total Protein (6.4-8.2) g/dL Albumin (3.4-5.0) g/dL Globulin (2.6-4.0) g/dL Albumin/Globulin Ratio (0.9-1.6) Urine Color YELLOW Urine Appearance SLT CLOUDY Urine pH 7.0 (5.0-8.0) Ur Specific [place] 1.015 (1.001-1.035) Urine Protein NEGATIVE (NEGATIVE) mg/dL Urine Glucose (UA) NEGATIVE (NEGATIVE) mg/dL Urine Ketones NEGATIVE (NEGATIVE) mg/dL Urine Occult Blood LARGE H (NEGATIVE) Urine Nitrite NEGATIVE (NEGATIVE) Urine Bilirubin NEGATIVE (NEGATIVE) Urine Urobilinogen 0.2 (<2.0) EU/dL Ur Leukocyte Esterase NEGATIVE (NEGATIVE) Urine RBC 10-13 (0-2/HPF) Urine WBC 2-4 (0-5/HPF) Ur Epithelial Cells FEW (NONE-FEW) Amorphous Sediment LIGHT (NEGATIVE) Urine Bacteria FEW (NEGATIVE) Urine HCG, Qual NEGATIVE (NEGATIVE) 04/10/19 Range/Units 06:02 WBC (4.0-11.0) K/uL RBC (4.30-5.90) M/uL Hgb (12.0-16.0) g/dL Hct (36.0-46.0) % MCV (80.0-98.0) fL MCH (27.0-32.0) pg MCHC (31.0-37.0) g/dL RDW Std Deviation (28.0-62.0) fl RDW Coeff of Dilan (11.0-15.0) % Plt Count (150-400) K/uL MPV (7.40-12.00) fL Neut % (Auto) (48.0-80.0) % Lymph % (Auto) (16.0-40.0) % Atlantic % (Auto) (0.0-15.0) % Eos % (Auto) (0.0-7.0) % Baso % (Auto) (0.0-1.5) % Neut # (Auto) (1.4-5.7) K/uL Lymph # (Auto) (0.6-2.4) K/uL [place] # (Auto) (0.0-0.8) K/uL Eos # (Auto) (0.0-0.7) K/uL Baso # (Auto) (0.0-0.1) K/uL Nucleated RBC % /100WBC Nucleated RBCs # K/uL Sodium 142 (136-145) mmol/L Potassium 3.8 (3.5-5.1) mmol/L Chloride 106 (98-107) mmol/L Carbon Dioxide 25.4 (21.0-32.0) mmol/L BUN 13 (7.0-18.0) mg/dL Creatinine 0.6 (0.6-1.0) mg/dL Est Cr Clr Drug Dosing 128.98 mL/min Estimated GFR (MDRD) > 60.0 ml/min Glucose 102 (74-106) mg/dL Calcium 9.4 (8.5-10.1) mg/dL Total Bilirubin 0.3 (0.2-1.0) mg/dL AST 26 (15-37) IU/L ALT 44 (14-63) IU/L Alkaline Phosphatase 104 (46-116) U/L Total Protein 6.8 (6.4-8.2) g/dL Albumin 3.5 (3.4-5.0) g/dL Globulin 3.3 (2.6-4.0) g/dL Albumin/Globulin Ratio 1.1 (0.9-1.6) Urine Color Urine Appearance Urine pH (5.0-8.0) Ur Specific [place] (1.001-1.035) Urine Protein (NEGATIVE) mg/dL Urine Glucose (UA) (NEGATIVE) mg/dL Urine Ketones (NEGATIVE) mg/dL Urine Occult Blood (NEGATIVE) Urine Nitrite (NEGATIVE) Urine Bilirubin (NEGATIVE) Urine Urobilinogen (<2.0) EU/dL Ur Leukocyte Esterase (NEGATIVE) Urine RBC (0-2/HPF) Urine WBC (0-5/HPF) Ur Epithelial Cells (NONE-FEW) Amorphous Sediment (NEGATIVE) Urine Bacteria (NEGATIVE) Urine HCG, Qual (NEGATIVE) Meds: Medications Generic Name Dose Route Start Last Admin Trade Name Freq PRN Reason Stop Dose Admin Sodium Chloride 1,000 mls @ 999 mls/hr 04/10/19 05:54 04/10/19 06:09 Normal Saline IV 04/10/19 06:54 999 mls/hr STAT ONE Administration Sodium Chloride 10 ml 04/10/19 05:54 Saline Flush FLUSH ASDIRECTED PRN Keep Vein Open Sodium Chloride 2.5 ml 04/10/19 05:54 Saline Flush FLUSH ASDIRECTED PRN Keep Vein Open Discontinued Medications Generic Name Dose Route Start Last Admin Trade Name Leni PRN Reason Stop Dose Admin Hydromorphone HCl 1 mg 04/10/19 06:43 Dilaudid IVPUSH 04/10/19 06:44 ONETIME ONE Ketorolac Tromethamine 30 mg 04/10/19 05:54 04/10/19 06:09 Toradol IVPUSH 04/10/19 05:55 30 mg ONETIME ONE Administration Ondansetron HCl 4 mg 04/10/19 05:54 04/10/19 06:09 Zofran IVPUSH 04/10/19 05:55 4 mg ONETIME ONE Administration Departure - Departure Time of Disposition: 06:51 Disposition: Home, Self-Care 01 Condition: Good Clinical Impression: Kidney stones, Right flank pain - Discharge Information Referrals: PCP,None [Primary Care Provider] - Forms: ED Department Discharge Additional Instructions: The following information is given to patients seen in the emergency department who are being discharged to home. This information is to outline your options for follow-up care. We provide all patients seen in our emergency department with a follow-up referral. The need for follow-up, as well as the timing and circumstances, are variable depending upon the specifics of your emergency department visit. If you don't have a primary care physician on staff, we will provide you with a referral. We always advise you to contact your personal physician following an emergency department visit to inform them of the circumstance of the visit and for follow-up with them and/or the need for any referrals to a consulting specialist. The emergency department will also refer you to a specialist when appropriate. This referral assures that you have the opportunity for followup care with a specialist. All of these measure are taken in an effort to provide you with optimal care, which includes your followup. Under all circumstances we always encourage you to contact your private physician who remains a resource for coordinating your care. When calling for followup care, please make the office aware that this follow-up is from your recent emergency room visit. If for any reason you are refused follow-up, please contact the [facility] emergency department at and ask to speak to the emergency department charge nurse. [facility] Specialty Care-Urology [address] [place] [address] [facility] Primary care- Internal Medicine and Family [address] [place] [id number] Push hydration and eat a low-fat diet. Use medications as prescribed for pain management and nausea and vomiting. Please call and schedule a follow-up appointment with primary care as well as our urologist using resources given to above. Return to ER as needed and as discussed Need follow-up of the stones within your kidney with the urologist and you may need further workup of your gallbladder as we discussed and this can be performed with primary care. - My Orders Last 24 Hours: My Active Orders 04/10/19 05:40 CULTURE URINE [RM] Stat 04/10/19 05:53 Saline Lock Insert [OM.PC] Stat 04/10/19 05:54 Sodium Chloride 0.9% [Normal Saline] 1,000 ml IV STAT Sodium Chloride 0.9% [Saline Flush] 10 ml FLUSH ASDIRECTED PRN Sodium Chloride 0.9% [Saline Flush] 2.5 ml FLUSH ASDIRECTED PRN - Assessment/Plan Last 24 Hours: My Active Orders 04/10/19 05:40 CULTURE URINE [RM] Stat 04/10/19 05:53 Saline Lock Insert [OM.PC] Stat 04/10/19 05:54 Sodium Chloride 0.9% [Normal Saline] 1,000 ml IV STAT Sodium Chloride 0.9% [Saline Flush] 10 ml FLUSH ASDIRECTED PRN Sodium Chloride 0.9% [Saline Flush] 2.5 ml FLUSH ASDIRECTED PRN
[2019-04-10 06:35] LABS: CHLORIDE,CL 106 mmol/L (98-107); SODIUM,NA 142 mmol/L (136-145)
[2019-04-10] MEDS ORDERED: HYDROmorphone 1 MG/ML Syringe IVPUSH ONE (06:43)
--- NOTE | 2019-04-10 06:43 | CT ---
INDICATION: Right flank pain with hematuria. TECHNIQUE: CT abdomen and pelvis without contrast. Coronal/sagittal reconstruction images. COMPARISON: None FINDINGS: Lower chest: Unremarkable. Liver: Unremarkable. Spleen: Unremarkable. Pancreas: Unremarkable. Gallbladder and bile ducts: Radiodense material is present within the gallbladder, which may represent stones or sludge. This is seen best on image 46, series 201. No associated inflammatory changes. No common bile duct stone on CT. Kidneys: Right nephrolithiasis. The largest stone is seen in the lower pole of the right kidney, measuring 2-3 mm on image 62, series 201. There is a cyst with a probable calcification along the superior pole, right kidney, with the maximum cyst diameter at 15 mm. This may be further evaluated with ultrasound on a nonemergent basis. There is no hydronephrosis, perinephric stranding, or obstructive urolith identified. Adrenal glands: Unremarkable. GI tract: Unremarkable. Appendix is normal. Vascular structures: Unremarkable. Lymph nodes: Unremarkable. Miscellaneous: Unremarkable. No free air or significant free fluid. Pelvic Organs: Unremarkable. Bones: Small sclerotic foci within the pelvis, image 122, series 201, which are likely benign bone islands. No suspicious bone lesion is seen. IMPRESSION: 1. Right-sided nephroliths. 2. There is no obstructive urolith, hydronephrosis, or perinephric fluid collection. 3. Normal caliber appendix. 4. No abdominal/pelvic lymphadenopathy. Please note that all CT scans at this facility use dose modulation, iterative reconstruction, and/or weight-based dosing when appropriate to reduce radiation dose to as low as reasonably achievable. Dictated by Jayy Garay MD @ Apr 10 2019 6:37AM Signed by Dr. Jayy Garay @ Apr 10 2019 6:41AM
== END 2019-04-10 07:06 | disposition home or self-care (01) ==
LOC: MW.ED 05:29
DX: N20.0 Calculus of kidney (principal); Z88.1 Allergy status to other antibiotic agents; Z88.0 Allergy status to penicillin
CPT/HCPCS: 36415; 74176; 80053; 81001; 81025; 85025; 87086; 96361; 96374; 96375; 99284; J1170; J1885; J2405; J7040

== ENCOUNTER 2019-04-17 06:58 | Observation (INO) | payer MEDICAID, OTHER ==
--- NOTE | 2019-04-17 07:06 | EDM.PDOC ---
ED HPI GENERAL MEDICAL PROBLEM - General Chief Complaint: Abdominal Pain Stated Complaint: KIDNEY STONES Time Seen by Provider: 04/17/19 07:15 Source of Information: Reports: Patient History Limitations: Reports: No Limitations - History of Present Illness INITIAL COMMENTS - FREE TEXT/NARRATIVE: History of present illness: []Patient was seen on April 10 with flank and abdominal pain CT showed renal stones and gallbladder sludge with a questionable stone but no ureterolithiasis. Patient returns today with worsening nausea and pain in the upper right quadrant. She denies any fevers or chills but has severe pain. Review of systems: As per history of present illness and below otherwise all systems reviewed and negative. Past medical history: As per history of present illness and as reviewed below otherwise noncontributory. Surgical history: As per history of present illness and as reviewed below otherwise noncontributory. Social history: No reported history of drug or alcohol abuse. Family history: As per history of present illness and as reviewed below otherwise noncontributory. Physical exam: General: Well developed, well nourished in NAD HEENT: Atraumatic, normocephalic, pupils reactive, negative for conjunctival pallor or scleral icterus, mucous membranes moist, throat clear, neck supple, nontender, trachea midline. Lungs: Clear to auscultation, breath sounds equal bilaterally, chest nontender. Heart: S1S2, regular, negative for clicks, rubs, or JVD. Abdomen: NABS, Soft, nondistended, tender right upper quadrant. Negative for masses or hepatosplenomegaly. Negative for costovertebral tenderness. Pelvis: Stable nontender. Genitourinary: Deferred. Rectal: Deferred. Extremities: Atraumatic, negative for cords or calf pain. Neurovascular unremarkable. Neuro: Awake, alert, oriented. Cranial nerves II through XII unremarkable. Cerebellum unremarkable. Motor and sensory unremarkable throughout. Exam nonfocal. Skin:warm and dry Diagnostics: CBC, chemistry, lipase, hCG, UA him ultrasound gallbladder Therapeutics: Normal saline, Toradol, Dilaudid, Zofran, Cipro, Flagyl, scope patch, ED Course: Stable Impression: Acute cholecystitis Prescriptions: None Plan: Admit to observation to general surgery, Dr. Cody Definitive disposition and diagnosis as appropriate pending reevaluation and review of above. right flank Pain Score (Numeric/FACES): 10 - Related Data Allergies Allergy/AdvReac Type Severity Reaction Status Date / Time amoxicillin Allergy Anaphylactic Verified 04/17/19 07:00 Shock Penicillins Allergy Anaphylactic Verified 04/17/19 07:00 Shock Home Meds: Home Meds Hydrocodone/Acetaminophen [Hydrocodon-Acetaminophen 5-325] 1 tab PO Q6HR [History] Tamsulosin [Flomax] 1 tab PO DAILY 04/17/19 [History] Past Medical History HEENT History: Reports: None Cardiovascular History: Reports: None Respiratory History: Reports: None Gastrointestinal History: Reports: None Genitourinary History: Reports: None [employer] History: Reports: Musculoskeletal History: Reports: None Neurological History: Reports: None Psychiatric History: Reports: None Endocrine/Metabolic History: Reports: None Hematologic History: Reports: None Immunologic History: Reports: None Oncologic (Cancer) History: Reports: None Dermatologic History: Reports: None - Infectious Disease History Infectious Disease History: Reports: None - Past Surgical History Head Surgeries/Procedures: Reports: None Cardiovascular Surgical History: Reports: None Female Surgical History: Reports: None Social & Family History - Family History Family Medical History: Noncontributory - Caffeine Use Caffeine Use: Reports: Soda ED ROS GENERAL - Review of Systems Review Of Systems: ROS reveals no pertinent complaints other than HPI. ED EXAM, RENAL/ - Physical Exam Exam: See Below (See history of present illness) Course - Vital Signs Last Recorded V/S: Last Vital Signs Temp 97.5 F 04/17/19 07:01 Pulse 98 04/17/19 07:01 Resp 20 04/17/19 07:01 BP 152/92 H 04/17/19 07:01 Pulse Ox 97 04/17/19 07:01 - Orders/Labs/Meds Orders: Active Orders 24 hr Category Date Time Status Patient Status [ADT] Routine ADT 04/17/19 10:10 Active Oxygen Therapy [RC] PRN Care 04/17/19 10:10 Active RT Incentive Spirometry [RC] Q1HWA Care 04/17/19 10:10 Active Up ad Winnie [RC] ASDIRECTED Care 04/17/19 10:10 Active Vital Signs [RC] PER UNIT ROUTINE Care 04/17/19 10:10 Active NPO Now [Nothing per Oral Now Diet] [DIET] Diet 04/17/19 Lunch Active Nothing Per Oral Diet [DIET] Diet 04/17/19 Breakfast Active CBC WITH AUTO DIFF [HEME] AM Lab 04/18/19 05:11 Ordered COMPREHENSIVE METABOLIC PN,CMP [CHEM] AM Lab 04/18/19 05:11 Ordered Ciprofloxacin in D5W [Cipro in D5W 400 MG/200 ML] 400 Med 04/17/19 10:15 Active mg Premix Bag 1 bag IV Q12H HYDROmorphone [Dilaudid] Med 04/17/19 10:10 Active 0.5 mg IVPUSH Q1H PRN Lactated Ringers [Ringers, Lactated] 1,000 ml Med 04/17/19 10:15 Active IV ASDIRECTED Lactated Ringers [Ringers, Lactated] 1,000 ml Med 04/17/19 10:15 Active IV ASDIRECTED Metoclopramide [Reglan] Med 04/17/19 10:10 Active 5 mg IVPUSH Q6H PRN Ondansetron [Zofran] Med 04/17/19 10:10 Active 4 mg IVPUSH Q6H PRN Promethazine [Phenergan] Med 04/17/19 10:10 Active 25 mg IM Q6H PRN Sodium Chloride 0.9% [Normal Saline] Med 04/17/19 10:10 Active 10 ml IV ASDIRECTED PRN Sodium Chloride 0.9% [Saline Flush] Med 04/17/19 07:18 Active 10 ml FLUSH ASDIRECTED PRN Sodium Chloride 0.9% [Saline Flush] Med 04/17/19 10:10 Active 10 ml FLUSH ASDIRECTED PRN Sodium Chloride 0.9% [Saline Flush] Med 04/17/19 07:18 Active 2.5 ml FLUSH ASDIRECTED PRN Sodium Chloride 0.9% [Saline Flush] Med 04/17/19 10:10 Active 2.5 ml FLUSH ASDIRECTED PRN metroNIDAZOLE/Normal Saline [Flagyl 500 MG in NS 100 ML Med 04/17/19 10:04 Active ] 500 mg Premix Bag 1 bag IV ONETIME Peripheral IV Insertion Adult [OM.PC] Urgent Oth 04/17/19 10:10 Ordered Saline Lock Insert [OM.PC] Stat Oth 04/17/19 07:18 Ordered Resuscitation Status Routine Resus Stat 04/17/19 10:10 Ordered Medication Orders Hydromorphone HCl (Dilaudid) 0.5 mg IVPUSH Q1H PRN PRN Reason: Pain (severe 7-10) Ciprofloxacin/Dextrose 400 mg/ (Premix) 200 mls @ 200 mls/hr IV Q12H [facility] Last Admin: 04/17/19 10:13 Dose: 200 mls/hr Metronidazole 500 mg/ Premix 100 mls @ 100 mls/hr IV ONETIME ONE Stop: 04/17/19 11:03 Lactated Ringer's (Ringers, Lactated) 1,000 mls @ 125 mls/hr IV ASDIRECTED CHRISTINE Lactated Ringer's (Ringers, Lactated) 1,000 mls @ 125 mls/hr IV ASDIRECTED [facility] Metoclopramide HCl (Reglan) 5 mg IVPUSH Q6H PRN PRN Reason: Nausea Ondansetron HCl (Zofran) 4 mg IVPUSH Q6H PRN PRN Reason: Nausea/Vomiting Promethazine HCl (Phenergan) 25 mg IM Q6H PRN PRN Reason: Nausea Sodium Chloride (Saline Flush) 10 ml FLUSH ASDIRECTED PRN PRN Reason: Keep Vein Open Last Admin: 04/17/19 07:23 Dose: 10 ml Sodium Chloride (Saline Flush) 2.5 ml FLUSH ASDIRECTED PRN PRN Reason: Keep Vein Open Last Admin: 04/17/19 07:23 Dose: 2.5 ml Sodium Chloride (Saline Flush) 10 ml FLUSH ASDIRECTED PRN PRN Reason: Keep Vein Open Sodium Chloride (Saline Flush) 2.5 ml FLUSH ASDIRECTED PRN PRN Reason: Keep Vein Open Sodium Chloride (Normal Saline) 10 ml IV ASDIRECTED PRN PRN Reason: IV Use Labs: Laboratory Tests 04/17/19 04/17/19 04/17/19 Range/Units 07:32 07:32 08:14 WBC 8.15 (4.0-11.0) K/uL RBC 5.21 (4.30-5.90) M/uL Hgb 13.9 (12.0-16.0) g/dL Hct 40.0 (36.0-46.0) % MCV 76.8 L (80.0-98.0) fL MCH 26.7 L (27.0-32.0) pg MCHC 34.8 (31.0-37.0) g/dL RDW Std Deviation 37.8 (28.0-62.0) fl RDW Coeff of Dilan 14 (11.0-15.0) % Plt Count 286 (150-400) K/uL MPV 9.80 (7.40-12.00) fL Neut % (Auto) 70.6 (48.0-80.0) % Lymph % (Auto) 25.2 (16.0-40.0) % Irwin % (Auto) 3.4 (0.0-15.0) % Eos % (Auto) 0.7 (0.0-7.0) % Baso % (Auto) 0.1 (0.0-1.5) % Neut # (Auto) 5.8 H (1.4-5.7) K/uL Lymph # (Auto) 2.1 (0.6-2.4) K/uL Irwin # (Auto) 0.3 (0.0-0.8) K/uL Eos # (Auto) 0.1 (0.0-0.7) K/uL Baso # (Auto) 0.0 (0.0-0.1) K/uL Nucleated RBC % 0.0 /100WBC Nucleated RBCs # 0 K/uL Sodium 138 (136-145) mmol/L Potassium 4.6 (3.5-5.1) mmol/L Chloride 103 (98-107) mmol/L Carbon Dioxide 25.0 (21.0-32.0) mmol/L BUN 20 H (7.0-18.0) mg/dL Creatinine 0.6 (0.6-1.0) mg/dL Est Cr Clr Drug Dosing 128.98 mL/min Estimated GFR (MDRD) > 60.0 ml/min Glucose 97 (74-106) mg/dL Calcium 9.4 (8.5-10.1) mg/dL Total Bilirubin 0.3 (0.2-1.0) mg/dL AST 32 (15-37) IU/L ALT 40 (14-63) IU/L Alkaline Phosphatase 111 (46-116) U/L Total Protein 6.9 (6.4-8.2) g/dL Albumin 3.8 (3.4-5.0) g/dL Globulin 3.1 (2.6-4.0) g/dL Albumin/Globulin Ratio 1.2 (0.9-1.6) Lipase 114 (73-393) U/L Urine Color YELLOW Urine Appearance CLEAR Urine pH 7.5 (5.0-8.0) Ur Specific Bozrah 1.020 (1.001-1.035) Urine Protein NEGATIVE (NEGATIVE) mg/dL Urine Glucose (UA) NEGATIVE (NEGATIVE) mg/dL Urine Ketones NEGATIVE (NEGATIVE) mg/dL Urine Occult Blood NEGATIVE (NEGATIVE) Urine Nitrite NEGATIVE (NEGATIVE) Urine Bilirubin NEGATIVE (NEGATIVE) Urine Urobilinogen 0.2 (<2.0) EU/dL Ur Leukocyte Esterase TRACE H (NEGATIVE) Urine RBC 0-2 (0-2/HPF) Urine WBC 3-6 (0-5/HPF) Ur Epithelial Cells MODERATE (NONE-FEW) Urine Bacteria FEW (NEGATIVE) Urine Mucus LIGHT (NONE-MOD) Urine HCG, Qual (NEGATIVE) 04/17/19 Range/Units 08:14 WBC (4.0-11.0) K/uL RBC (4.30-5.90) M/uL Hgb (12.0-16.0) g/dL Hct (36.0-46.0) % MCV (80.0-98.0) fL MCH (27.0-32.0) pg MCHC (31.0-37.0) g/dL RDW Std Deviation (28.0-62.0) fl RDW Coeff of Dilan (11.0-15.0) % Plt Count (150-400) K/uL MPV (7.40-12.00) fL Neut % (Auto) (48.0-80.0) % Lymph % (Auto) (16.0-40.0) % Irwin % (Auto) (0.0-15.0) % Eos % (Auto) (0.0-7.0) % Baso % (Auto) (0.0-1.5) % Neut # (Auto) (1.4-5.7) K/uL Lymph # (Auto) (0.6-2.4) K/uL Irwin # (Auto) (0.0-0.8) K/uL Eos # (Auto) (0.0-0.7) K/uL Baso # (Auto) (0.0-0.1) K/uL Nucleated RBC % /100WBC Nucleated RBCs # K/uL Sodium (136-145) mmol/L Potassium (3.5-5.1) mmol/L Chloride (98-107) mmol/L Carbon Dioxide (21.0-32.0) mmol/L BUN (7.0-18.0) mg/dL Creatinine (0.6-1.0) mg/dL Est Cr Clr Drug Dosing mL/min Estimated GFR (MDRD) ml/min Glucose (74-106) mg/dL Calcium (8.5-10.1) mg/dL Total Bilirubin (0.2-1.0) mg/dL AST (15-37) IU/L ALT (14-63) IU/L Alkaline Phosphatase (46-116) U/L Total Protein (6.4-8.2) g/dL Albumin (3.4-5.0) g/dL Globulin (2.6-4.0) g/dL Albumin/Globulin Ratio (0.9-1.6) Lipase (73-393) U/L Urine Color Urine Appearance Urine pH (5.0-8.0) Ur Specific Bozrah (1.001-1.035) Urine Protein (NEGATIVE) mg/dL Urine Glucose (UA) (NEGATIVE) mg/dL Urine Ketones (NEGATIVE) mg/dL Urine Occult Blood (NEGATIVE) Urine Nitrite (NEGATIVE) Urine Bilirubin (NEGATIVE) Urine Urobilinogen (<2.0) EU/dL Ur Leukocyte Esterase (NEGATIVE) Urine RBC (0-2/HPF) Urine WBC (0-5/HPF) Ur Epithelial Cells (NONE-FEW) Urine Bacteria (NEGATIVE) Urine Mucus (NONE-MOD) Urine HCG, Qual NEGATIVE (NEGATIVE) Meds: Medications Generic Name Dose Route Start Last Admin Trade Name Freq PRN Reason Stop Dose Admin Hydromorphone HCl 0.5 mg 04/17/19 10:10 Dilaudid IVPUSH Q1H PRN Pain (severe 7-10) Ciprofloxacin/Dextrose 400 mg/ 200 mls @ 200 mls/hr 04/17/19 10:15 04/17/19 10:13 Premix IV 200 mls/hr Q12H CHRISTINE Administration Metronidazole 500 mg/ Premix 100 mls @ 100 mls/hr 04/17/19 10:04 IV 04/17/19 11:03 ONETIME ONE Lactated Ringer's 1,000 mls @ 125 mls/hr 04/17/19 10:15 Ringers, Lactated IV ASDIRECTED CHRISTINE Lactated Ringer's 1,000 mls @ 125 mls/hr 04/17/19 10:15 Ringers, Lactated IV ASDIRECTED CHRISTINE Metoclopramide HCl 5 mg 04/17/19 10:10 Reglan IVPUSH Q6H PRN Nausea Ondansetron HCl 4 mg 04/17/19 10:10 Zofran IVPUSH Q6H PRN Nausea/Vomiting Promethazine HCl 25 mg 04/17/19 10:10 Phenergan IM Q6H PRN Nausea Sodium Chloride 10 ml 04/17/19 07:18 04/17/19 07:23 Saline Flush FLUSH 10 ml ASDIRECTED PRN Administration Keep Vein Open Sodium Chloride 2.5 ml 04/17/19 07:18 04/17/19 07:23 Saline Flush FLUSH 2.5 ml ASDIRECTED PRN Administration Keep Vein Open Sodium Chloride 10 ml 04/17/19 10:10 Saline Flush FLUSH ASDIRECTED PRN Keep Vein Open Sodium Chloride 2.5 ml 04/17/19 10:10 Saline Flush FLUSH ASDIRECTED PRN Keep Vein Open Sodium Chloride 10 ml 04/17/19 10:10 Normal Saline IV ASDIRECTED PRN IV Use Discontinued Medications Generic Name Dose Route Start Last Admin Trade Name Freq PRN Reason Stop Dose Admin Hydromorphone HCl 0.5 mg 04/17/19 07:40 04/17/19 07:48 Dilaudid IVPUSH 04/17/19 07:41 Not Given ONETIME ONE Hydromorphone HCl 0.5 mg 04/17/19 07:41 04/17/19 07:45 Dilaudid IVPUSH 04/17/19 07:42 0.5 mg ONETIME ONE Administration Hydromorphone HCl 0.5 mg 04/17/19 09:10 04/17/19 09:20 Dilaudid IVPUSH 04/17/19 09:11 0.5 mg ONETIME ONE Administration Hydromorphone HCl 0.5 mg 04/17/19 10:00 04/17/19 10:12 Dilaudid IVPUSH 04/17/19 10:01 0.5 mg ONETIME ONE Administration Hydromorphone HCl 0.5 mg 04/17/19 10:04 Dilaudid IVPUSH Q1H PRN Pain Hyoscyamine 0.125 mg 04/17/19 07:15 04/17/19 07:18 Hyomax-Sl SL 04/17/19 07:16 0.125 mg ONETIME ONE Administration Sodium Chloride 1,000 mls @ 999 mls/hr 04/17/19 07:18 04/17/19 07:22 Normal Saline IV 04/17/19 08:18 999 mls/hr .Bolus ONE Administration Sodium Chloride 1,000 mls @ 999 mls/hr 04/17/19 09:10 04/17/19 09:19 Normal Saline IV 04/17/19 10:10 999 mls/hr .Bolus ONE Administration Ketorolac Tromethamine 30 mg 04/17/19 07:07 04/17/19 07:12 Toradol IVPUSH 04/17/19 07:08 30 mg ONETIME ONE Administration Ondansetron HCl 4 mg 04/17/19 07:15 04/17/19 07:19 Zofran IVPUSH 04/17/19 07:16 4 mg ONETIME ONE Administration Ondansetron HCl 4 mg 04/17/19 10:05 04/17/19 10:11 Zofran IVPUSH 04/17/19 10:06 4 mg ONETIME ONE Administration Scopolamine 1.5 mg 04/17/19 10:05 04/17/19 10:54 Transderm-Scop TOP 04/17/19 10:06 Not Given ONETIME ONE Scopolamine 1.5 mg 04/17/19 10:05 04/17/19 10:53 Transderm-Scop TRDERM 04/17/19 10:06 1.5 mg ONETIME ONE Administration Departure - Departure Time of Disposition: 10:00 Disposition: Still A Patient 30 Condition: Good Clinical Impression: Acute cholecystitis - Discharge Information *PRESCRIPTION DRUG MONITORING PROGRAM REVIEWED*: No *COPY OF PRESCRIPTION DRUG MONITORING REPORT IN PATIENT ILSA: No - My Orders Last 24 Hours: My Active Orders 04/17/19 07:18 Sodium Chloride 0.9% [Saline Flush] 10 ml FLUSH ASDIRECTED PRN Sodium Chloride 0.9% [Saline Flush] 2.5 ml FLUSH ASDIRECTED PRN Saline Lock Insert [OM.PC] Stat 04/17/19 10:04 metroNIDAZOLE/Normal Saline [Flagyl 500 MG in NS 100 ML] 500 mg Premix Bag 1 bag IV ONETIME 04/17/19 10:15 Ciprofloxacin in D5W [Cipro in D5W 400 MG/200 ML] 400 mg Premix Bag 1 bag IV Q12H - Assessment/Plan Last 24 Hours: My Active Orders 04/17/19 07:18 Sodium Chloride 0.9% [Saline Flush] 10 ml FLUSH ASDIRECTED PRN Sodium Chloride 0.9% [Saline Flush] 2.5 ml FLUSH ASDIRECTED PRN Saline Lock Insert [OM.PC] Stat 04/17/19 10:04 metroNIDAZOLE/Normal Saline [Flagyl 500 MG in NS 100 ML] 500 mg Premix Bag 1 bag IV ONETIME 04/17/19 10:15 Ciprofloxacin in D5W [Cipro in D5W 400 MG/200 ML] 400 mg Premix Bag 1 bag IV Q12H
[2019-04-17] MEDS ORDERED: Ketorolac 30 MG/ML SDV IVPUSH ONE (07:07)
[2019-04-17] MEDS ORDERED: Ondansetron 4 MG/2 ML SDV IVPUSH ONE ×2 (07:15→10:05)
[2019-04-17] MEDS ORDERED: Hyoscyamine 0.125 MG Tab.SL SL ONE (07:15)
[2019-04-17] MEDS ORDERED: Sodium Chloride 0.9% 1,000 ML IV ONE ×2 (07:18→09:10)
[2019-04-17] MEDS ORDERED: Sodium Chloride 0.9% 2.5 ML Syringe FLUSH PRN ×2 (07:18→10:10)
[2019-04-17] MEDS ORDERED: Sodium Chloride 0.9% 10 ML Syringe FLUSH PRN ×2 (07:18→10:10)
[2019-04-17] MEDS ORDERED: HYDROmorphone 2 MG/ML Syringe IVPUSH ONE (07:40)
[2019-04-17] MEDS ORDERED: HYDROmorphone 1 MG/ML Syringe IVPUSH ONE ×3 (07:41→10:00)
[2019-04-17 08:04] LABS: CHLORIDE,CL 103 mmol/L (98-107); SODIUM,NA 138 mmol/L (136-145)
--- NOTE | 2019-04-17 08:44 | US ---
INDICATION: Right upper quadrant abdominal pain. Right-sided nephrolithiasis identified on recent CT April 10, 2019. Presumed cholelithiasis suggested on the prior study. TECHNIQUE: Right upper quadrant ultrasound. COMPARISON: Correlation is made with a CT of the abdomen and pelvis April 10, 2019. FINDINGS: Cholelithiasis. There appears to be a stone impacted within the gallbladder neck with adjacent sludge. Gallbladder wall is just above the upper limit of normal at 3.5 mm. There is no pericholecystic fluid. No biliary ductal dilatation. The common bile duct measures 2.6 mm. The liver is negative for masses or biliary ductal dilatation. There is no hydronephrosis. The right kidney measures 10.3 cm in length. 1.7 cm cyst superior pole right kidney. The visualized pancreatic head and neck are grossly unremarkable. No right upper quadrant ascites. IMPRESSION: 1. Cholelithiasis. The gallbladder wall is just above the upper limit of normal at 3.5 mm. Reportedly there is a positive sonographic Domingo`s sign. Please note however there is no pericholecystic fluid and no biliary ductal dilatation. Clinical correlation and surgical consultation is suggested. A HIDA scan may be helpful. 2. Small right renal cyst. No hydronephrosis of the right kidney. Dictated by Nelson Guerra MD @ Apr 17 2019 8:39AM Signed by Dr. Nelson Guerra @ Apr 17 2019 8:43AM
[2019-04-17] MEDS ORDERED: HYDROmorphone 1 MG/ML Syringe IVPUSH PRN (10:04)
[2019-04-17] MEDS ORDERED: metroNIDAZOLE/Normal Saline 500 MG in Premix Bag 1 BAG IV ONE ×2 (10:04→13:30)
[2019-04-17] MEDS ORDERED: Scopolamine 1.5 MG Transdermal Patch TOP ONE (10:05)
[2019-04-17] MEDS ORDERED: Scopolamine 1.5 MG Transdermal Patch TRDERM ONE (10:05)
[2019-04-17] MEDS ORDERED: Sodium Chloride 0.9% 10 ML SDV IV PRN (10:10)
[2019-04-17] MEDS ORDERED: Metoclopramide 10 MG/2 ML SDV IVPUSH PRN (10:10)
[2019-04-17] MEDS ORDERED: Ondansetron 4 MG/2 ML SDV IVPUSH PRN (10:10)
[2019-04-17] MEDS ORDERED: HYDROmorphone 2 MG/ML SDV IVPUSH PRN (10:10)
[2019-04-17] MEDS ORDERED: Promethazine 25 MG/ML SDV IM PRN (10:10)
--- NOTE | 2019-04-17 10:10 | PCM.HP ---
H&P History of Present Illness - General Date of Service: 04/17/19 Source of Information: Patient History Limitations: Reports: No Limitations - History of Present Illness Initial Comments - Free Text/Narative: Patient is a 23 year old female who comes to the ER with severe RUQ pain. She was seen last week in the ER and diagnosed with right sided kidney stones. SHe has continued to have RUQ ever since. This morning her pain was so severe that she developed nausea and vomiting. She came to the ER. She was slightly hypertensive on arrival. Her last meal was yesterday. Her last BM was yesterday. She denied urinary symptoms. Her labs were normal (CBC, CMP). A RUQ US was performed. She had a positive cohn's sign. There appeared to be a stone impacted at the neck of her GB associated with sludge. The gallbladder wall thickness is at the high end of normal. Her CBD was normal size. Her right kidney was normal with no signs of hydronephrosis. She recieved 1mg of Dilaudid and is still having severe pain. right flank Pain Score (Numeric/FACES): 10 - Related Data Allergies/Adverse Reactions: Allergies Allergy/AdvReac Type Severity Reaction Status Date / Time amoxicillin Allergy Anaphylactic Verified 04/17/19 07:00 Shock Penicillins Allergy Anaphylactic Verified 04/17/19 07:00 Shock Home Medications: Home Meds Hydrocodone/Acetaminophen [Hydrocodon-Acetaminophen 5-325] 5 - 325 mg PO Q6HR [History] Tamsulosin [Flomax] 0.4 mg PO DAILY 04/17/19 [History] Past Medical History HEENT History: Reports: None Cardiovascular History: Reports: None Respiratory History: Reports: None Gastrointestinal History: Reports: None Genitourinary History: Reports: None 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: Musculoskeletal History: Reports: None Neurological History: Reports: None Psychiatric History: Reports: None Endocrine/Metabolic History: Reports: None Hematologic History: Reports: None Immunologic History: Reports: None Oncologic (Cancer) History: Reports: None Dermatologic History: Reports: None - Infectious Disease History Infectious Disease History: Reports: None - Past Surgical History Head Surgeries/Procedures: Reports: None Cardiovascular Surgical History: Reports: None Female Surgical History: Reports: None Social & Family History - Family History Family Medical History: Noncontributory - Tobacco Use Smoking Status *Q: Never Smoker Second Hand Smoke Exposure: No - Caffeine Use Caffeine Use: Reports: Soda - Recreational Drug Use Recreational Drug Use: No H&P Review of Systems - Review of Systems: Review Of Systems: ROS reveals no pertinent complaints other than HPI. Exam - Exam Exam: See Below - Vital Signs Vital Signs: Last Vital Signs Temp 36.4 C 04/17/19 07:01 Pulse 98 04/17/19 07:01 Resp 20 04/17/19 07:01 BP 152/92 H 04/17/19 07:01 Pulse Ox 97 04/17/19 07:01 Weight: 77.111 kg - Exam General: Alert, Oriented, Severe Distress HEENT: Conjunctiva Clear, Mucosa Moist & [place], Posterior Pharynx Clear Neck: Supple, Trachea Midline Lungs: Clear to Auscultation, Normal Respiratory Effort Cardiovascular: Regular Rate, Regular Rhythm GI/Abdominal Exam: Normal Bowel Sounds, Soft, No Distention, Tender (Positive cohn's sign ) Back Exam: Normal Inspection Extremities: Normal Inspection - Patient Data Lab Results Last 24 hrs: Laboratory Results - last 24 hr 04/17/19 04/17/19 04/17/19 Range/Units 07:32 07:32 08:14 WBC 8.15 (4.0-11.0) K/uL RBC 5.21 (4.30-5.90) M/uL Hgb 13.9 (12.0-16.0) g/dL Hct 40.0 (36.0-46.0) % MCV 76.8 L (80.0-98.0) fL MCH 26.7 L (27.0-32.0) pg MCHC 34.8 (31.0-37.0) g/dL RDW Std Deviation 37.8 (28.0-62.0) fl RDW Coeff of Dilan 14 (11.0-15.0) % Plt Count 286 (150-400) K/uL MPV 9.80 (7.40-12.00) fL Neut % (Auto) 70.6 (48.0-80.0) % Lymph % (Auto) 25.2 (16.0-40.0) % Wood % (Auto) 3.4 (0.0-15.0) % Eos % (Auto) 0.7 (0.0-7.0) % Baso % (Auto) 0.1 (0.0-1.5) % Neut # (Auto) 5.8 H (1.4-5.7) K/uL Lymph # (Auto) 2.1 (0.6-2.4) K/uL [place] # (Auto) 0.3 (0.0-0.8) K/uL Eos # (Auto) 0.1 (0.0-0.7) K/uL Baso # (Auto) 0.0 (0.0-0.1) K/uL Nucleated RBC % 0.0 /100WBC Nucleated RBCs # 0 K/uL Sodium 138 (136-145) mmol/L Potassium 4.6 (3.5-5.1) mmol/L Chloride 103 (98-107) mmol/L Carbon Dioxide 25.0 (21.0-32.0) mmol/L BUN 20 H (7.0-18.0) mg/dL Creatinine 0.6 (0.6-1.0) mg/dL Est Cr Clr Drug Dosing 128.98 mL/min Estimated GFR (MDRD) > 60.0 ml/min Glucose 97 (74-106) mg/dL Calcium 9.4 (8.5-10.1) mg/dL Total Bilirubin 0.3 (0.2-1.0) mg/dL AST 32 (15-37) IU/L ALT 40 (14-63) IU/L Alkaline Phosphatase 111 (46-116) U/L Total Protein 6.9 (6.4-8.2) g/dL Albumin 3.8 (3.4-5.0) g/dL Globulin 3.1 (2.6-4.0) g/dL Albumin/Globulin Ratio 1.2 (0.9-1.6) Lipase 114 (73-393) U/L Urine Color YELLOW Urine Appearance CLEAR Urine pH 7.5 (5.0-8.0) Ur Specific [place] 1.020 (1.001-1.035) Urine Protein NEGATIVE (NEGATIVE) mg/dL Urine Glucose (UA) NEGATIVE (NEGATIVE) mg/dL Urine Ketones NEGATIVE (NEGATIVE) mg/dL Urine Occult Blood NEGATIVE (NEGATIVE) Urine Nitrite NEGATIVE (NEGATIVE) Urine Bilirubin NEGATIVE (NEGATIVE) Urine Urobilinogen 0.2 (<2.0) EU/dL Ur Leukocyte Esterase TRACE H (NEGATIVE) Urine RBC 0-2 (0-2/HPF) Urine WBC 3-6 (0-5/HPF) Ur Epithelial Cells MODERATE (NONE-FEW) Urine Bacteria FEW (NEGATIVE) Urine Mucus LIGHT (NONE-MOD) Urine HCG, Qual (NEGATIVE) 04/17/19 Range/Units 08:14 WBC (4.0-11.0) K/uL RBC (4.30-5.90) M/uL Hgb (12.0-16.0) g/dL Hct (36.0-46.0) % MCV (80.0-98.0) fL MCH (27.0-32.0) pg MCHC (31.0-37.0) g/dL RDW Std Deviation (28.0-62.0) fl RDW Coeff of Dilan (11.0-15.0) % Plt Count (150-400) K/uL MPV (7.40-12.00) fL Neut % (Auto) (48.0-80.0) % Lymph % (Auto) (16.0-40.0) % [place] % (Auto) (0.0-15.0) % Eos % (Auto) (0.0-7.0) % Baso % (Auto) (0.0-1.5) % Neut # (Auto) (1.4-5.7) K/uL Lymph # (Auto) (0.6-2.4) K/uL [place] # (Auto) (0.0-0.8) K/uL Eos # (Auto) (0.0-0.7) K/uL Baso # (Auto) (0.0-0.1) K/uL Nucleated RBC % /100WBC Nucleated RBCs # K/uL Sodium (136-145) mmol/L Potassium (3.5-5.1) mmol/L Chloride (98-107) mmol/L Carbon Dioxide (21.0-32.0) mmol/L BUN (7.0-18.0) mg/dL Creatinine (0.6-1.0) mg/dL Est Cr Clr Drug Dosing mL/min Estimated GFR (MDRD) ml/min Glucose (74-106) mg/dL Calcium (8.5-10.1) mg/dL Total Bilirubin (0.2-1.0) mg/dL AST (15-37) IU/L ALT (14-63) IU/L Alkaline Phosphatase (46-116) U/L Total Protein (6.4-8.2) g/dL Albumin (3.4-5.0) g/dL Globulin (2.6-4.0) g/dL Albumin/Globulin Ratio (0.9-1.6) Lipase (73-393) U/L Urine Color Urine Appearance Urine pH (5.0-8.0) Ur Specific [place] (1.001-1.035) Urine Protein (NEGATIVE) mg/dL Urine Glucose (UA) (NEGATIVE) mg/dL Urine Ketones (NEGATIVE) mg/dL Urine Occult Blood (NEGATIVE) Urine Nitrite (NEGATIVE) Urine Bilirubin (NEGATIVE) Urine Urobilinogen (<2.0) EU/dL Ur Leukocyte Esterase (NEGATIVE) Urine RBC (0-2/HPF) Urine WBC (0-5/HPF) Ur Epithelial Cells (NONE-FEW) Urine Bacteria (NEGATIVE) Urine Mucus (NONE-MOD) Urine HCG, Qual NEGATIVE (NEGATIVE) Result Diagrams: 04/17/19 07:32 04/17/19 07:32 - Problem List (1) Acute cholecystitis SNOMED Code(s): 70723189 ICD Code: K81.0 - ACUTE CHOLECYSTITIS Status: Acute Current Visit: Yes Problem List Initiated/Reviewed/Updated: Yes Orders Last 24hrs: Active Orders 24 hr Category Date Time Status Ciprofloxacin in D5W [Cipro in D5W 400 MG/200 ML] 400 Med 04/17/19 10:15 Active mg Premix Bag 1 bag IV Q12H Sodium Chloride 0.9% [Saline Flush] Med 04/17/19 07:18 Active 10 ml FLUSH ASDIRECTED PRN Sodium Chloride 0.9% [Saline Flush] Med 04/17/19 07:18 Active 2.5 ml FLUSH ASDIRECTED PRN metroNIDAZOLE/Normal Saline [Flagyl 500 MG in NS 100 ML Med 04/17/19 10:04 Active ] 500 mg Premix Bag 1 bag IV ONETIME Saline Lock Insert [OM.PC] Stat Oth 04/17/19 07:18 Ordered Medication Orders Ciprofloxacin/Dextrose 400 mg/ (Premix) 200 mls @ 200 mls/hr IV Q12H CHRISTINE Metronidazole 500 mg/ Premix 100 mls @ 100 mls/hr IV ONETIME ONE Stop: 04/17/19 11:03 Sodium Chloride (Saline Flush) 10 ml FLUSH ASDIRECTED PRN PRN Reason: Keep Vein Open Last Admin: 04/17/19 07:23 Dose: 10 ml Sodium Chloride (Saline Flush) 2.5 ml FLUSH ASDIRECTED PRN PRN Reason: Keep Vein Open Last Admin: 04/17/19 07:23 Dose: 2.5 ml Assessment/Plan Comment:: Most likely her pain is due to acute cholecystitis. I explained the pathophysiology of biliary disease. I explained the need for a cholecystectomy. I explained that I will attempt this laparoscopically but should I not be able to perform it safely we will convert to open. I explained the expected demetrio- operative course with each case. I explained the risks including bleeding infection or damage to surrounding structures. She verbalized understanding and wishes to proceed. She will be admitted to the floor, kept NPO, given IV LR @ 125ml/hr, and have surgery this afternoon. Pain: Dilaudid 0.5mg IV q 1hr CV: VS per routine Pulm: IS use q1 hr. GI: NPO until after procedure. Normal LFTs at this point. IV reglan, zofran prn. Scopolamine patch to be placed. Renal: BUN/Cr within normal limits. Will continue to watch given history of nephrolithiasis. ID: IV cipro and flagyl Heme: Stable and consented for blood products if needed Px: SCDs
[2019-04-17] MEDS: Ciprofloxacin in D5W 400 MG in Premix Bag 1 BAG IV SCH ×4 (10:13→22:15)
[2019-04-17] MEDS ORDERED: Lactated Ringers 1,000 ML IV SCH (10:15)
[2019-04-17] MEDS: Lactated Ringers 1,000 ML IV SCH ×2 (11:18→22:15)
[2019-04-17] MEDS: HYDROmorphone 2 MG/ML Syringe IVPUSH PRN ×2 (11:22→12:33)
[2019-04-17] MEDS ORDERED: Bupivacaine 0.5% 30 ML SDV ONE (13:26)
[2019-04-17] MEDS ORDERED: Ondansetron 4 MG/2 ML SDV ONE (13:38)
[2019-04-17] MEDS ORDERED: fentaNYL 100 MCG/2 ML SDV ONE ×2 (13:38→14:29)
[2019-04-17] MEDS ORDERED: Midazolam 1 MG/ML 2 ML SDV ONE (13:38)
[2019-04-17] MEDS ORDERED: Propofol 200 MG/20 ML SDV ONE ×2 (13:38→15:06)
--- NOTE | 2019-04-17 13:40 | PCM.PREANE ---
Preanesthetic Assessment - Anesthesia/Transfusion/Family Hx Anesthesia History: No Prior Anesthesia Family History of Anesthesia Reaction: No Transfusion History: No Prior Transfusion(s) Intubation History: Unknown - Review of Systems General: No Symptoms Pulmonary: No Symptoms Cardiovascular: No Symptoms Gastrointestinal: Abdominal Pain Neurological: No Symptoms Other: Reports: None - Physical Assessment O2 Sat by Pulse Oximetry: 100 Respiratory Rate: 16 Vital Signs: Last Vital Signs Temp 36.4 C 04/17/19 07:01 Pulse 76 04/17/19 11:23 Resp 16 04/17/19 11:23 BP 136/79 04/17/19 11:23 Pulse Ox 100 04/17/19 11:23 Height: 5 ft 5 in Weight: 77.111 kg ASA Class: 2E Mental Status: Alert & Oriented x3 Airway Class: Mallampati = 2 Dentition: Reports: Normal Dentition Thyro-Mental Finger Breadths: 3 Mouth Opening Finger Breadths: 2 ROM/Head Extension: Full Lungs: Clear to Auscultation, Normal Respiratory Effort Cardiovascular: Regular Rate, Regular Rhythm - Lab Values: Laboratory Last Values WBC 8.15 K/uL (4.0-11.0) 04/17/19 07:32 RBC 5.21 M/uL (4.30-5.90) 04/17/19 07:32 Hgb 13.9 g/dL (12.0-16.0) 04/17/19 07:32 Hct 40.0 % (36.0-46.0) 04/17/19 07:32 MCV 76.8 fL (80.0-98.0) L 04/17/19 07:32 MCH 26.7 pg (27.0-32.0) L 04/17/19 07:32 MCHC 34.8 g/dL (31.0-37.0) 04/17/19 07:32 RDW Std Deviation 37.8 fl (28.0-62.0) 04/17/19 07:32 RDW Coeff of Dilan 14 % (11.0-15.0) 04/17/19 07:32 Plt Count 286 K/uL (150-400) 04/17/19 07:32 MPV 9.80 fL (7.40-12.00) 04/17/19 07:32 Neut % (Auto) 70.6 % (48.0-80.0) 04/17/19 07:32 Lymph % (Auto) 25.2 % (16.0-40.0) 04/17/19 07:32 [place] % (Auto) 3.4 % (0.0-15.0) 04/17/19 07:32 Eos % (Auto) 0.7 % (0.0-7.0) 04/17/19 07:32 Baso % (Auto) 0.1 % (0.0-1.5) 04/17/19 07:32 Neut # (Auto) 5.8 K/uL (1.4-5.7) H 04/17/19 07:32 Lymph # (Auto) 2.1 K/uL (0.6-2.4) 04/17/19 07:32 [place] # (Auto) 0.3 K/uL (0.0-0.8) 04/17/19 07:32 Eos # (Auto) 0.1 K/uL (0.0-0.7) 04/17/19 07:32 Baso # (Auto) 0.0 K/uL (0.0-0.1) 04/17/19 07:32 Nucleated RBC % 0.0 /100WBC 04/17/19 07:32 Nucleated RBCs # 0 K/uL 04/17/19 07:32 Sodium 138 mmol/L (136-145) 04/17/19 07:32 Potassium 4.6 mmol/L (3.5-5.1) 04/17/19 07:32 Chloride 103 mmol/L (98-107) 04/17/19 07:32 Carbon Dioxide 25.0 mmol/L (21.0-32.0) 04/17/19 07:32 BUN 20 mg/dL (7.0-18.0) H 04/17/19 07:32 Creatinine 0.6 mg/dL (0.6-1.0) 04/17/19 07:32 Est Cr Clr Drug Dosing 128.98 mL/min 04/17/19 07:32 Estimated GFR (MDRD) > 60.0 ml/min 04/17/19 07:32 Glucose 97 mg/dL (74-106) 04/17/19 07:32 Calcium 9.4 mg/dL (8.5-10.1) 04/17/19 07:32 Total Bilirubin 0.3 mg/dL (0.2-1.0) 04/17/19 07:32 AST 32 IU/L (15-37) 04/17/19 07:32 ALT 40 IU/L (14-63) 04/17/19 07:32 Alkaline Phosphatase 111 U/L (46-116) 04/17/19 07:32 Total Protein 6.9 g/dL (6.4-8.2) 04/17/19 07:32 Albumin 3.8 g/dL (3.4-5.0) 04/17/19 07:32 Globulin 3.1 g/dL (2.6-4.0) 04/17/19 07:32 Albumin/Globulin Ratio 1.2 (0.9-1.6) 04/17/19 07:32 Lipase 114 U/L (73-393) 04/17/19 07:32 Urine Color YELLOW 04/17/19 08:14 Urine Appearance CLEAR 04/17/19 08:14 Urine pH 7.5 (5.0-8.0) 04/17/19 08:14 Ur Specific [place] 1.020 (1.001-1.035) 04/17/19 08:14 Urine Protein NEGATIVE mg/dL (NEGATIVE) 04/17/19 08:14 Urine Glucose (UA) NEGATIVE mg/dL (NEGATIVE) 04/17/19 08:14 Urine Ketones NEGATIVE mg/dL (NEGATIVE) 04/17/19 08:14 Urine Occult Blood NEGATIVE (NEGATIVE) 04/17/19 08:14 Urine Nitrite NEGATIVE (NEGATIVE) 04/17/19 08:14 Urine Bilirubin NEGATIVE (NEGATIVE) 04/17/19 08:14 Urine Urobilinogen 0.2 EU/dL (<2.0) 04/17/19 08:14 Ur Leukocyte Esterase TRACE (NEGATIVE) H 04/17/19 08:14 Urine RBC 0-2 (0-2/HPF) 04/17/19 08:14 Urine WBC 3-6 (0-5/HPF) 04/17/19 08:14 Ur Epithelial Cells MODERATE (NONE-FEW) 04/17/19 08:14 Urine Bacteria FEW (NEGATIVE) 04/17/19 08:14 Urine Mucus LIGHT (NONE-MOD) 04/17/19 08:14 Urine HCG, Qual NEGATIVE (NEGATIVE) 04/17/19 08:14 - Allergies Allergies/Adverse Reactions: Allergies Allergy/AdvReac Type Severity Reaction Status Date / Time amoxicillin Allergy Anaphylactic Verified 04/17/19 07:00 Shock Penicillins Allergy Anaphylactic Verified 04/17/19 07:00 Shock - Blood Blood Available: No - Anesthesia Plan Pre-Op Medication Ordered: None - Acknowledgements Anesthesia Type Planned: General Anesthesia Pt an Appropriate Candidate for the Planned Anesthesia: Yes Alternatives and Risks of Anesthesia Discussed w Pt/Guardian: Yes Pt/Guardian Understands and Agrees with Anesthesia Plan: Yes PreAnesthesia Questionnaire HEENT History: Reports: None Cardiovascular History: Reports: None Respiratory History: Reports: None Gastrointestinal History: Reports: Other (See Below) (cholecystitis) Genitourinary History: Reports: None 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: Musculoskeletal History: Reports: None Neurological History: Reports: None Psychiatric History: Reports: None Endocrine/Metabolic History: Reports: None Hematologic History: Reports: None Immunologic History: Reports: None Oncologic (Cancer) History: Reports: None Dermatologic History: Reports: None - Infectious Disease History Infectious Disease History: Reports: None - Past Surgical History Head Surgeries/Procedures: Reports: None HEENT Surgical History: Reports: Adenoidectomy, Tonsillectomy Cardiovascular Surgical History: Reports: None Female Surgical History: Reports: None - SUBSTANCE USE Smoking Status *Q: Never Smoker Second Hand Smoke Exposure: No Recreational Drug Use History: No - HOME MEDS Home Medications: Home Meds Hydrocodone/Acetaminophen [Hydrocodon-Acetaminophen 5-325] 5 - 325 mg PO Q6HR [History] Tamsulosin [Flomax] 0.4 mg PO DAILY 04/17/19 [History] - CURRENT (IN HOUSE) MEDS Current Meds: Current Medications Hydromorphone HCl (Dilaudid) 0.5 mg IVPUSH Q1H PRN PRN Reason: Pain (severe 7-10) Last Admin: 04/17/19 12:33 Dose: 0.5 mg Ciprofloxacin/Dextrose 400 mg/ (Premix) 200 mls @ 200 mls/hr IV Q12H CHRISTINE Last Admin: 04/17/19 10:13 Dose: 200 mls/hr Lactated Ringer's (Ringers, Lactated) 1,000 mls @ 125 mls/hr IV ASDIRECTED CHRISTINE Last Admin: 04/17/19 11:18 Dose: 125 mls/hr Metronidazole 500 mg/ Premix 100 mls @ 100 mls/hr IV ONETIME ONE Stop: 04/17/19 14:29 Last Admin: 04/17/19 13:29 Dose: 100 mls/hr Metoclopramide HCl (Reglan) 5 mg IVPUSH Q6H PRN PRN Reason: Nausea Last Admin: 04/17/19 11:16 Dose: 5 mg Ondansetron HCl (Zofran) 4 mg IVPUSH Q6H PRN PRN Reason: Nausea/Vomiting Promethazine HCl (Phenergan) 25 mg IM Q6H PRN PRN Reason: Nausea Sodium Chloride (Saline Flush) 10 ml FLUSH ASDIRECTED PRN PRN Reason: Keep Vein Open Last Admin: 04/17/19 07:23 Dose: 10 ml Sodium Chloride (Saline Flush) 2.5 ml FLUSH ASDIRECTED PRN PRN Reason: Keep Vein Open Last Admin: 04/17/19 07:23 Dose: 2.5 ml Sodium Chloride (Saline Flush) 10 ml FLUSH ASDIRECTED PRN PRN Reason: Keep Vein Open Sodium Chloride (Saline Flush) 2.5 ml FLUSH ASDIRECTED PRN PRN Reason: Keep Vein Open Sodium Chloride (Normal Saline) 10 ml IV ASDIRECTED PRN PRN Reason: IV Use Discontinued Medications Bupivacaine HCl (Marcaine 0.5%) Confirm Administered Dose 30 ml .ROUTE .STK-MED ONE Stop: 04/17/19 13:27 Hydromorphone HCl (Dilaudid) 0.5 mg IVPUSH ONETIME ONE Stop: 04/17/19 07:41 Last Admin: 04/17/19 07:48 Dose: Not Given Hydromorphone HCl (Dilaudid) 0.5 mg IVPUSH ONETIME ONE Stop: 04/17/19 07:42 Last Admin: 04/17/19 07:45 Dose: 0.5 mg Hydromorphone HCl (Dilaudid) 0.5 mg IVPUSH ONETIME ONE Stop: 04/17/19 09:11 Last Admin: 04/17/19 09:20 Dose: 0.5 mg Hydromorphone HCl (Dilaudid) 0.5 mg IVPUSH ONETIME ONE Stop: 04/17/19 10:01 Last Admin: 04/17/19 10:12 Dose: 0.5 mg Hydromorphone HCl (Dilaudid) 0.5 mg IVPUSH Q1H PRN PRN Reason: Pain Hydromorphone HCl (Dilaudid) 0.5 mg IVPUSH Q1H PRN PRN Reason: Pain (severe 7-10) Hyoscyamine (Hyomax-Sl) 0.125 mg SL ONETIME ONE Stop: 04/17/19 07:16 Last Admin: 04/17/19 07:18 Dose: 0.125 mg Sodium Chloride (Normal Saline) 1,000 mls @ 999 mls/hr IV .Bolus ONE Stop: 04/17/19 08:18 Last Admin: 04/17/19 07:22 Dose: 999 mls/hr Sodium Chloride (Normal Saline) 1,000 mls @ 999 mls/hr IV .Bolus ONE Stop: 04/17/19 10:10 Last Admin: 04/17/19 09:19 Dose: 999 mls/hr Metronidazole 500 mg/ Premix 100 mls @ 100 mls/hr IV ONETIME ONE Stop: 04/17/19 11:03 Last Admin: 04/17/19 13:30 Dose: Not Given Lactated Ringer's (Ringers, Lactated) 1,000 mls @ 125 mls/hr IV ASDIRECTED CHRISTINE Ketorolac Tromethamine (Toradol) 30 mg IVPUSH ONETIME ONE Stop: 04/17/19 07:08 Last Admin: 04/17/19 07:12 Dose: 30 mg Ondansetron HCl (Zofran) 4 mg IVPUSH ONETIME ONE Stop: 04/17/19 07:16 Last Admin: 04/17/19 07:19 Dose: 4 mg Ondansetron HCl (Zofran) 4 mg IVPUSH ONETIME ONE Stop: 04/17/19 10:06 Last Admin: 04/17/19 10:11 Dose: 4 mg Scopolamine (Transderm-Scop) 1.5 mg TOP ONETIME ONE Stop: 04/17/19 10:06 Last Admin: 04/17/19 10:54 Dose: Not Given Scopolamine (Transderm-Scop) 1.5 mg TRDERM ONETIME ONE Stop: 04/17/19 10:06 Last Admin: 04/17/19 10:53 Dose: 1.5 mg
[2019-04-17] MEDS ORDERED: Ketorolac 30 MG/ML SDV ONE (13:44)
[2019-04-17] MEDS ORDERED: Rocuronium 100 MG/10 ML MDV ONE (13:44)
[2019-04-17] MEDS ORDERED: Glycopyrrolate 0.2 MG/ML SDV ONE (13:44)
[2019-04-17] MEDS ORDERED: Dexamethasone 4 MG/ML 5 ML MDV ONE (13:44)
[2019-04-17] MEDS ORDERED: Sugammadex Sodium 200 MG/2 ML VIAL ONE (13:45)
[2019-04-17] MEDS ORDERED: HYDROmorphone 2 MG/ML Syringe ONE (14:36)
[2019-04-17] MEDS ORDERED: Meperidine PF 25 MG/ML Syringe ONE (16:29)
--- NOTE | 2019-04-17 16:33 | PCM.OPNOTE ---
- General Post-Op/Procedure Note Date of Surgery/Procedure: 04/17/19 Operative Procedure(s): Laparoscopic cholecystectomy Findings: Acute cholecystitis with a large stone impacted in the proximal half of the gallbladder Pre Op Diagnosis: Acute cholecystitis with cholelithiasis Post-Op Diagnosis: same Anesthesia Technique: General ET Tube Primary Surgeon: Maggie Cody Fluid Replacement, Intraop: 1,600 Output, Urine Amount: 250 EBL in mLs: 25 Condition: Stable Free Text/Narrative:: Intake & Output 04/17/19 04/17/19 04/17/19 06:59 14:59 22:59 Intake Total 0 Output Total 500 Balance -500
--- NOTE | 2019-04-17 16:53 | PCM.POSTAN ---
POST ANESTHESIA ASSESSMENT - MENTAL STATUS Mental Status: Alert - VITAL SIGNS Pulse Rate: 88 SaO2: 98 Resp Rate: 16 Blood Pressure: 129/85 Temperature: 36.4 C - RESPIRATORY Respiratory Status: Respiratory Rate WNL - CARDIOVASCULAR CV Status: Pulse Rate WNL - GASTROINTESTINAL GI Status: No Symptoms - PAIN Pain Score: 1 (Some soreness. Sleeps when not disturbed.) - POST OP HYDRATION Hydration Status: Adequate & Stable (Doing well. Ready for transfer to floor. No problems noted presently.)
[2019-04-17] MEDS ORDERED: Meperidine PF 25 MG/ML Syringe IVPUSH ONE (16:57)
[2019-04-17] MEDS: Acetaminophen/oxyCODONE 325-5 MG Tab PO PRN ×2 (18:08→22:25)
--- NOTE | 2019-04-17 18:29 | OR ---
SURGEON: MAGGIE WILSON MD DATE OF PROCEDURE: 04/17/2019 PREOPERATIVE DIAGNOSIS: Acute cholecystitis with cholelithiasis. POSTOPERATIVE DIAGNOSIS: Acute cholecystitis with cholelithiasis. PROCEDURE PERFORMED: Laparoscopic cholecystectomy. PRIMARY SURGEON: Maggie Wilson MD. ANESTHESIA: General endotracheal anesthesia. FLUIDS: 1600 mL crystalloid. EBL: 25 mL. URINE OUTPUT: 250 mL. FINDINGS: Grossly distended inflamed and edematous gallbladder consistent with acute cholecystitis. COMPLICATIONS: None. INDICATIONS: The patient is a 23-year-old female who presents with severe right upper quadrant pain. Her CBC and CMP appeared normal. A right upper quadrant ultrasound showed a positive Domingo sign as well as a stone stuck in the neck of the gallbladder. Given these findings, a decision was made to proceed with a cholecystectomy. The patient and I discussed the procedure, the expected perioperative course, and the risks including bleeding, infection, or damage to surrounding structures. She understood that if I could not do it laparoscopically, I will convert it to open. She verbalized understanding and wished to proceed. PROCEDURE IN DETAIL: The patient was brought to the OR and placed on the OR table in supine position. A time-out was completed verifying the patient's name, age, date of , allergies, and procedure to be performed. General endotracheal anesthesia was induced. The left arm was tucked to the patient's side and a Ennis catheter placed. The abdomen was prepped and draped in usual standard fashion. I anesthetized the infraumbilical fold with 0.5% Marcaine plain. An 11 blade was used to make an incision along this fold. Cautery was used to dissect down to the level of subcutaneous fat. I bluntly dissected down to the fascia and elevated it with Jazmine's. This was incised sharply with the curved Redd scissors. Entry into the abdomen was digitally palpated. I placed stay sutures on either side of the fascia using 0 Vicryl suture. A 12 mm Adria trocar was placed into the abdomen. The abdomen was insufflated and I inserted a 5 mm 30- degree scope. I inspected the area underneath my initial trocar placement. No damage to surrounding structures was noted. The patient was placed into reverse Trendelenburg position and airplaned slightly to the left. 5 mm trocars were placed in the following locations under direct visualization; one in the epigastric area, one in the right flank, and one 2 fingerbreadths below the right subcostal margin in the midclavicular line. The dome of the gallbladder was tense, inflamed, and edematous. An aspirating needle was brought through the right flank port and used to orantes the dome of the gallbladder. I aspirated 50 mL of clearish-appearing bile consistent with hydrops. This was passed off the field. I was then able to grasp the dome of the gallbladder with an atraumatic grasper and lifted cranially. The infundibulum had some wispy attachments to the duodenum. These were taken down just with suction. The proximal half of the gallbladder was edematous and inflamed. There was a firm stone that could be palpated at the neck of the gallbladder. Using mostly blunt dissection as well as a little bit of hook cautery, I was then able to clear away about one-third of the cystic plate. Once my critical view had been achieved, a photograph was taken. I then triply clipped and ligated the cystic duct and artery. There was a small side branch that came off the cystic artery. This was clipped and ligated as well. Using hook cautery, I then dissected the gallbladder off the remainder of the cystic plate. This was difficult given the amount of edema between the gallbladder and the cystic plate. However, I was able to complete this safely, but the clip that was on the gallbladder fell off and bile spilled into the abdomen. No stones were spilled. The gallbladder was then placed in an EndoCatch bag and removed through the 12 mm port site. I replaced my trocar and inspected my operative field. I copiously irrigated the area with 1 L of normal saline until it ran clear. I then inspected my clips. They appeared to be in good position and the wound bed was hemostatic with no evidence of bile leakage. Given the amount of inflammation and edema, however, I did place a piece of Surgicel and endoscopic Makenna in the wound bed. When hemostasis was ensured, I removed the 5 mm trocars under direct visualization and allowed the abdomen desufflate. The 12 mm trocar was removed as well. The fascia at the infraumbilical port site was closed with interrupted 0 Vicryl sutures. The subcutaneous fat layer was closed with interrupted 3-0 Vicryl sutures. The skin was closed with a running 4-0 Monocryl stitch. The 5 mm trocar sites were closed with interrupted 4-0 Monocryl sutures. Steri-Strips and sterile dressings were applied. The patient tolerated the procedure well and was transferred to the PACU in stable condition. All counts were complete and correct at the end of the case. BRIGIDO GARCIA /[id number]
[2019-04-17] MEDS: Cyclobenzaprine 5 MG Tab PO PRN (19:08)
[2019-04-17] MEDS: metroNIDAZOLE/Normal Saline 500 MG in Premix Bag 1 BAG IV SCH (19:09)
[2019-04-18] MEDS: metroNIDAZOLE/Normal Saline 500 MG in Premix Bag 1 BAG IV SCH ×2 (01:25→08:24)
[2019-04-18] MEDS: Acetaminophen/oxyCODONE 325-5 MG Tab PO PRN ×2 (04:19→09:09)
[2019-04-18 06:13] LABS: CHLORIDE,CL 105 mmol/L (98-107); SODIUM,NA 138 mmol/L (136-145)
--- NOTE | 2019-04-18 07:01 | PCM48HPAN ---
Post Anesthesia Note - EVALUATION WITHIN 48HRS OF ANESTHETIC Vital Signs in Normal Range: Yes Patient Participated in Evaluation: Yes Respiratory Function Stable: Yes Airway Patent: Yes Cardiovascular Function Stable: Yes Hydration Status Stable: Yes Pain Control Satisfactory: Yes Nausea and Vomiting Control Satisfactory: Yes Mental Status Recovered: Yes Pulse Rate: 88 Resp Rate: 16 Temperature: 36.4 C Blood Pressure: 129/85 - COMMENTS/OBSERVATIONS Free Text/Narrative:: No anesthesia problems
[2019-04-18] MEDS: Cyclobenzaprine 5 MG Tab PO PRN (08:09)
[2019-04-18] MEDS ORDERED: Docusate Sodium 100 MG Cap PO SCH (09:00)
--- NOTE | 2019-04-18 14:15 | PCM.DCSUM1 ---
Discharge Summary - Hospital Course Free Text/Narrative:: Patient is a 23-year-old female who presented with severe right upper quadrant abdominal pain associated with nausea vomiting. Her labs were normal and vital signs stable. Right upper quadrant ultrasound was positive for Domingo sign and showed a stone impacted at the neck of the gallbladder. She's tender the operating room for a laparoscopic possible open cholecystectomy. She was found to have a grossly distended enlarged and edematous gallbladder consistent with acute cholecystitis. This was able to be removed laparoscopically. Postoperatively she was sore but her pain was greatly improved. She is able to tolerate clear liquids with no difficulty. There were no acute events overnight. This morning her labs were again all normal. Her diet was advanced to regular. All antibiotics were stopped. She is able to eat a small amount of regular food with no return of her nausea vomiting. She was able to ambulate without difficulty. The patient did have some bloody drainage from her periumbilical incision. This saturated the dressing so it was changed this morning. There is no evidence of active bleeding. Her abdomen was otherwise soft and nontender. She was cleared for discharge home. - Discharge Data Discharge Date: 04/18/19 Discharge Disposition: Home, Self-Care 01 Condition: Stable - Discharge Diagnosis/Problem(s) (1) Acute cholecystitis SNOMED Code(s): 10175760 ICD Code: K81.0 - ACUTE CHOLECYSTITIS Status: Acute Current Visit: Yes - Patient Summary/Data Operative Procedure(s) Performed: Laparoscopic cholecystectomy - Patient Instructions Diet: Regular Diet as Tolerated, Drink 8-10+ Glasses/Day Diet, Other: Low fat diet for one month Activity: No Lifting Over 20 Pounds (for four weeks ), Rest and Relax Today Driving: Do Not Drive (for one week ) Showering/Bathing: No Showering (for one day ), No Tub Bathing/Swimming (for 2 weeks ) Wound/Incision Care: Keep Operative Site/Wound Site Clean and Dry Notify Provider of: Fever, Increased Pain, Swelling and Redness, Drainage, Nausea and/or Vomiting - Discharge Plan *PRESCRIPTION DRUG MONITORING PROGRAM REVIEWED*: Yes *COPY OF PRESCRIPTION DRUG MONITORING REPORT IN PATIENT ILSA: Yes Home Medications: Home Meds Tamsulosin [Flomax] 0.4 mg PO DAILY 04/17/19 [History] Patient Handouts: Laparoscopic Cholecystectomy, Care After, Acetaminophen; Oxycodone tablets Referrals: Lemere,Maggie M, MD [Physician] - 05/04/19 9:30 am - Discharge Summary/Plan Comment DC Time >30 min.: No - General Info Functional Status: Reports: Pain Controlled, Tolerating Diet, Ambulating, Urinating - Review of Systems General: Reports: No Symptoms HEENT: Reports: No Symptoms Pulmonary: Reports: No Symptoms Cardiovascular: Reports: No Symptoms Gastrointestinal: Reports: No Symptoms Musculoskeletal: Reports: No Symptoms - Patient Data Vitals - Most Recent: Last Vital Signs Temp 36.5 C 04/18/19 11:35 Pulse 62 04/18/19 11:35 Resp 18 04/18/19 11:35 BP 121/81 04/18/19 11:35 Pulse Ox 99 04/18/19 11:35 Weight - Most Recent: 77.111 kg I&O - Last 24 hours: Intake & Output 04/17/19 04/18/19 04/18/19 22:59 06:59 14:59 Intake Total 4372 975 Output Total 1000 2250 Balance 3372 -1275 Lab Results - Last 24 hrs: Laboratory Results - last 24 hr 04/17/19 04/18/19 04/18/19 Range/Units 13:55 05:40 05:40 WBC 6.72 (4.0-11.0) K/uL RBC 4.65 (4.30-5.90) M/uL Hgb 12.4 (12.0-16.0) g/dL Hct 35.7 L (36.0-46.0) % MCV 76.8 L (80.0-98.0) fL MCH 26.7 L (27.0-32.0) pg MCHC 34.7 (31.0-37.0) g/dL RDW Std Deviation 37.5 (28.0-62.0) fl RDW Coeff of Dilan 13 (11.0-15.0) % Plt Count 262 (150-400) K/uL MPV 9.80 (7.40-12.00) fL Neut % (Auto) 72.4 (48.0-80.0) % Lymph % (Auto) 21.6 (16.0-40.0) % [place] % (Auto) 6.0 (0.0-15.0) % Eos % (Auto) 0.0 (0.0-7.0) % Baso % (Auto) 0.0 (0.0-1.5) % Neut # (Auto) 4.9 (1.4-5.7) K/uL Lymph # (Auto) 1.5 (0.6-2.4) K/uL [place] # (Auto) 0.4 (0.0-0.8) K/uL Eos # (Auto) 0.0 (0.0-0.7) K/uL Baso # (Auto) 0.0 (0.0-0.1) K/uL Nucleated RBC % 0.0 /100WBC Nucleated RBCs # 0 K/uL Sodium 138 (136-145) mmol/L Potassium 4.0 (3.5-5.1) mmol/L Chloride 105 (98-107) mmol/L Carbon Dioxide 25.9 (21.0-32.0) mmol/L BUN 8 (7.0-18.0) mg/dL Creatinine 0.6 (0.6-1.0) mg/dL Est Cr Clr Drug Dosing 128.98 mL/min Estimated GFR (MDRD) > 60.0 ml/min Glucose 112 H (74-106) mg/dL Calcium 8.4 L (8.5-10.1) mg/dL Total Bilirubin 0.4 (0.2-1.0) mg/dL AST 21 (15-37) IU/L ALT 29 (14-63) IU/L Alkaline Phosphatase 87 (46-116) U/L Total Protein 5.6 L (6.4-8.2) g/dL Albumin 2.8 L (3.4-5.0) g/dL Globulin 2.8 (2.6-4.0) g/dL Albumin/Globulin Ratio 1.0 (0.9-1.6) Blood Type A POSITIVE Antibody Screen NEGATIVE Med Orders - Current: Current Medications Cyclobenzaprine HCl (Flexeril) 5 mg PO TID PRN PRN Reason: Abdominal Pain Last Admin: 04/18/19 08:09 Dose: 5 mg Docusate Sodium (Colace) 100 mg PO DAILY CHRISTINE Last Admin: 04/18/19 08:09 Dose: 100 mg Hydromorphone HCl (Dilaudid) 0.5 mg IVPUSH Q1H PRN PRN Reason: Pain (severe 7-10) Last Admin: 04/17/19 12:33 Dose: 0.5 mg Metronidazole 500 mg/ Premix 100 mls @ 100 mls/hr IV Q6H CHRISTINE Last Admin: 04/18/19 08:24 Dose: 100 mls/hr Metoclopramide HCl (Reglan) 5 mg IVPUSH Q6H PRN PRN Reason: Nausea Last Admin: 04/17/19 11:16 Dose: 5 mg Ondansetron HCl (Zofran) 4 mg IVPUSH Q6H PRN PRN Reason: Nausea/Vomiting Oxycodone/Acetaminophen (Percocet 325-5 Mg) 2 tab PO Q4H PRN PRN Reason: Abdominal Pain Last Admin: 04/18/19 09:09 Dose: 2 tab Promethazine HCl (Phenergan) 25 mg IM Q6H PRN PRN Reason: Nausea Discontinued Medications Bupivacaine HCl (Marcaine 0.5%) Confirm Administered Dose 30 ml .ROUTE .STK-MED ONE Stop: 04/17/19 13:27 Dexamethasone (Dexamethasone) Confirm Administered Dose 20 mg .ROUTE .STK-MED ONE Stop: 04/17/19 13:45 Fentanyl (Sublimaze) Confirm Administered Dose 100 mcg .ROUTE .STK-MED ONE Stop: 04/17/19 13:39 Fentanyl (Sublimaze) Confirm Administered Dose 100 mcg .ROUTE .STK-MED ONE Stop: 04/17/19 14:30 Glycopyrrolate (Robinul) Confirm Administered Dose 0.2 mg .ROUTE .STK-MED ONE Stop: 04/17/19 13:45 Hydromorphone HCl (Dilaudid) 0.5 mg IVPUSH ONETIME ONE Stop: 04/17/19 07:41 Last Admin: 04/17/19 07:48 Dose: Not Given Hydromorphone HCl (Dilaudid) 0.5 mg IVPUSH ONETIME ONE Stop: 04/17/19 07:42 Last Admin: 04/17/19 07:45 Dose: 0.5 mg Hydromorphone HCl (Dilaudid) 0.5 mg IVPUSH ONETIME ONE Stop: 04/17/19 09:11 Last Admin: 04/17/19 09:20 Dose: 0.5 mg Hydromorphone HCl (Dilaudid) 0.5 mg IVPUSH ONETIME ONE Stop: 04/17/19 10:01 Last Admin: 04/17/19 10:12 Dose: 0.5 mg Hydromorphone HCl (Dilaudid) 0.5 mg IVPUSH Q1H PRN PRN Reason: Pain Hydromorphone HCl (Dilaudid) 0.5 mg IVPUSH Q1H PRN PRN Reason: Pain (severe 7-10) Hydromorphone HCl (Dilaudid) Confirm Administered Dose 2 mg .ROUTE .STK-MED ONE Stop: 04/17/19 14:37 Hyoscyamine (Hyomax-Sl) 0.125 mg SL ONETIME ONE Stop: 04/17/19 07:16 Last Admin: 04/17/19 07:18 Dose: 0.125 mg Sodium Chloride (Normal Saline) 1,000 mls @ 999 mls/hr IV .Bolus ONE Stop: 04/17/19 08:18 Last Admin: 04/17/19 07:22 Dose: 999 mls/hr Sodium Chloride (Normal Saline) 1,000 mls @ 999 mls/hr IV .Bolus ONE Stop: 04/17/19 10:10 Last Admin: 04/17/19 09:19 Dose: 999 mls/hr Ciprofloxacin/Dextrose 400 mg/ (Premix) 200 mls @ 200 mls/hr IV Q12H [facility] Last Admin: 04/17/19 22:15 Dose: 200 mls/hr Metronidazole 500 mg/ Premix 100 mls @ 100 mls/hr IV ONETIME ONE Stop: 04/17/19 11:03 Last Admin: 04/17/19 13:30 Dose: Not Given Lactated Ringer's (Ringers, Lactated) 1,000 mls @ 125 mls/hr IV ASDIRECTED [facility] Last Admin: 04/17/19 22:15 Dose: 125 mls/hr Lactated Ringer's (Ringers, Lactated) 1,000 mls @ 125 mls/hr IV ASDIRECTED [facility] Metronidazole 500 mg/ Premix 100 mls @ 100 mls/hr IV ONETIME ONE Stop: 04/17/19 14:29 Last Admin: 04/17/19 13:29 Dose: 100 mls/hr Acetaminophen (Ofirmev) Confirm Administered Dose 100 mls @ as directed IV .STK- MED ONE Stop: 04/17/19 13:46 Ketorolac Tromethamine (Toradol) 30 mg IVPUSH ONETIME ONE Stop: 04/17/19 07:08 Last Admin: 04/17/19 07:12 Dose: 30 mg Ketorolac Tromethamine (Toradol) Confirm Administered Dose 30 mg .ROUTE .STK- MED ONE Stop: 04/17/19 13:45 Meperidine HCl (Demerol) Confirm Administered Dose 25 mg .ROUTE .STK-MED ONE Stop: 04/17/19 16:30 Last Admin: 04/17/19 17:32 Dose: Not Given Meperidine HCl (Demerol) 25 mg IVPUSH ONETIME ONE Stop: 04/17/19 16:58 Last Admin: 04/17/19 17:32 Dose: Not Given Midazolam HCl (Versed 1 Mg/Ml) Confirm Administered Dose 2 mg .ROUTE .STK-MED ONE Stop: 04/17/19 13:39 Ondansetron HCl (Zofran) 4 mg IVPUSH ONETIME ONE Stop: 04/17/19 07:16 Last Admin: 04/17/19 07:19 Dose: 4 mg Ondansetron HCl (Zofran) 4 mg IVPUSH ONETIME ONE Stop: 04/17/19 10:06 Last Admin: 04/17/19 10:11 Dose: 4 mg Ondansetron HCl (Zofran) Confirm Administered Dose 4 mg .ROUTE .STK-MED ONE Stop: 04/17/19 13:39 Propofol (Diprivan 20 Ml) Confirm Administered Dose 200 mg .ROUTE .STK-MED ONE Stop: 04/17/19 13:39 Propofol (Diprivan 20 Ml) Confirm Administered Dose 200 mg .ROUTE .STK-MED ONE Stop: 04/17/19 15:07 Rocuronium [place] (Zemuron) Confirm Administered Dose 100 mg .ROUTE .STK-MED ONE Stop: 04/17/19 13:45 Scopolamine (Transderm-Scop) 1.5 mg TOP ONETIME ONE Stop: 04/17/19 10:06 Last Admin: 04/17/19 10:54 Dose: Not Given Scopolamine (Transderm-Scop) 1.5 mg TRDERM ONETIME ONE Stop: 04/17/19 10:06 Last Admin: 04/17/19 10:53 Dose: 1.5 mg Sodium Chloride (Saline Flush) 10 ml FLUSH ASDIRECTED PRN PRN Reason: Keep Vein Open Last Admin: 04/17/19 07:23 Dose: 10 ml Sodium Chloride (Saline Flush) 2.5 ml FLUSH ASDIRECTED PRN PRN Reason: Keep Vein Open Last Admin: 04/17/19 07:23 Dose: 2.5 ml Sodium Chloride (Saline Flush) 10 ml FLUSH ASDIRECTED PRN PRN Reason: Keep Vein Open Sodium Chloride (Saline Flush) 2.5 ml FLUSH ASDIRECTED PRN PRN Reason: Keep Vein Open Sodium Chloride (Normal Saline) 10 ml IV ASDIRECTED PRN PRN Reason: IV Use Sugammadex Sodium (Bridion) Confirm Administered Dose 200 mg .ROUTE .[facility] ONE Stop: 04/17/19 13:46 - Exam General: Reports: Alert, Oriented HEENT: Reports: Pupils Equal, Pupils Reactive Lungs: Reports: Normal Respiratory Effort Cardiovascular: Reports: Regular Rate GI/Abdominal Exam: Soft, Non-Tender, No Distention, No Mass Wound/Incisions: Reports: Drainage (Bloody drainage on demetrio-umbilical incision. Inspection of the wound showed no active bleeding or hematoma. Dressing changed. ) Neurological: Reports: No New Focal Deficit Psy/Mental Status: Reports: Alert, Normal Affect, Normal Mood
== END 2019-04-18 14:15 | disposition home or self-care (01) ==
LOC: MW.ED 06:58 → MW.SDS 10:36 → MW.MS 10:37 → MW.SDS 10:38 → MW.MS 10:39
PROVIDERS: ADMIT Surgery; ATTEND Surgery
DX: K80.12 Calculus of gallbladder with acute and chronic cholecystitis without obstruction (principal); Z88.0 Allergy status to penicillin; Z79.899 Other long term (current) drug therapy
CPT/HCPCS: 36415; 47562; 76705; 80053; 81001; 81025; 83690; 85025; 86850; 86900; 86901; 96361; 96365; 96366; 96367; 96375; 96376; 99285; A4217; A9270; G0378; J0131; J0744; J1100; J1170; J1885; J2175; J2250; J2405; J2704; J2765; J3010; J3490; J7040; J7120; 00790; 88304